=== PATIENT | male | born 1935 | race Caucasian/White ===

== ENCOUNTER 2016-08-17 11:26 | Inpatient (IN) | payer MEDICAID, MEDICARE ==
[~2016-08-17] VITALS: Ht 180.3 cm; Wt 78.5 kg
[~2016-08-17 11:26] MED LIST: ASPI-605 PO; CITA10TA9 PO; CLOP75TA2 PO; METO50TA3 PO; SILO8CAP PO; VALS40TA4 PO; ZOLP10TA6 PO
--- NOTE | 2016-08-17 11:32 | NUR ---
Sent by PMD for evaluation dt chest pain, 07/12, non radiaiting x 2 weeks. Pt is aao3, appears in no apparent distress, respiration even and unlaborted. Skin is warm to touch and non diaphoretic, patient is afebrile; vss. connected pt to tele monitor
[2016-08-17] MEDS ORDERED: ASPIRIN 81 MG TAB.CHEW ONE (11:50)
[2016-08-17] MEDS ORDERED: NITROGLYCERIN PACKET 1 GM PACKET ONE (11:51)
[2016-08-17 11:55] LABS: BASOPHILS # (AUTO) 0.2 /CMM (0.0-0.2); BASOPHILS % (AUTO) 2.2 % (0.0-2.0); EOSINOPHILS # (AUTO) 0.3 /CMM (0.0-0.7); EOSINOPHILS % (AUTO) 3.7 % (0.0-6.0); HEMATOCRIT 41 % (39-51); HEMOGLOBIN 13.3 g/dL (13.5-17.5); MEAN CORPUSCULAR HEMOGLOBIN 29 PG (26.0-33.0); MEAN CORPUSCULAR HGB CONC 33 g/dl (31.0-36.0); MEAN CORPUSCULAR VOLUME 88 fL (80-96); MONOCYTES # (AUTO) 0.4 /CMM (0.1-1.30); MONOCYTES % (AUTO) 5.1 % (2.0-12.0); NEUTROPHILS # (AUTO) 5.4 /CMM (1.8-8.9); PLATELET COUNT (AUTO) 287 /CMM (150-450); RED BLOOD CELL COUNT(AUTO) 4.64 MIL/uL (4.5-6.0); WHITE BLOOD COUNT (AUTO) 7.3 K/uL (4.3-11.0)
[2016-08-17] MEDS ORDERED: NITROGLYCERIN PACKET 1 GM PACKET TD ONE (12:00)
[2016-08-17] MEDS ORDERED: ASPIRIN 325 MG TABLET PO ONE (12:00)
--- NOTE | 2016-08-17 12:00 | NUR ---
XRAY TCH AT [facility]
[2016-08-17] MEDS ORDERED: HYDR-3326 PO (12:04)
[2016-08-17 12:06] LABS: CALCIUM, SERUM 8.8 mg/dL (8.5-10.1); CARBON DIOXIDE 30 mmol/L (21-32); CHLORIDE 105 mmol/L (98-107); CREATININE 0.9 mg/dL (0.6-1.3); GLUCOSE 106 mg/dL (74-106); POTASSIUM 4.9 mmol/L (3.5-5.1); SODIUM SERUM 139 mmol/L (136-145); UREA NITROGEN, BLOOD 22 mg/dL (7-18)
[2016-08-17 12:09] LABS: INR 0.94 (0.87-1.13); PROTHROMBIN TIME 9.8 SECS (9.5-12.7)
[2016-08-17 12:13] LABS: TROPONIN I < 0.017 ng/mL (0.00-0.056)
[2016-08-17 12:18] LABS: B-TYPE NATRIURETIC PEPTIDE 1941 PG/ML (0-125)
--- NOTE | 2016-08-17 12:42 | NUR ---
Patient is resting comfortably in bed.
--- NOTE | 2016-08-17 13:06 | NUR ---
PAGED DR BA HOME DELIVERY DRIVER FOR DR GOMEZ
--- NOTE | 2016-08-17 13:31 | NUR ---
REPAGED DR BA
--- NOTE | 2016-08-17 13:52 | NUR ---
PATIENT TRANSPORTED TOO 3W. VSS
[2016-08-17 14:30] VITALS: BP 133/65
[2016-08-17 16:00] VITALS: BP 142/66
[2016-08-17] MEDS ORDERED: ONDANSETRON 4 MG TAB.RAPDIS PO PRN (16:00)
[2016-08-17] MEDS ORDERED: RANEXA 500 MG PO SCH (17:00)
[2016-08-17] MEDS ORDERED: ZOLPIDEM TARTRATE 10 MG TABLET PO PRN (19:00)
[2016-08-17] MEDS ORDERED: HYDROCODONE/APAP 5/325MG 1 EACH TABLET PO PRN (19:00)
[2016-08-17 20:00] VITALS: BP 154/67
--- NOTE | 2016-08-17 20:00 | NUR ---
RECEIVED PATIENT IN BED, ALERT AND ORIENTED X3, CALM, NO SOB, ON 2LPM VIA NC PRN, COMPLAINING OF BACK PAIN OF 7/10, WILL GIVE PAIN MEDICATION, ALSO COMPLAINING OF BURNING SENSATION TO THE CHEST, PATIENT HAS DX OF ACS, ON TELE WITH READING OF SR WITH FIRST AV BLOCK AND BORDERLINE BBB. COLOSTOMY BAG TO LEFT LOWER QUADRANT IS DRAINING OF SOLID STOOL. KEPT SAFE AND COMFORTABLE, CALL LIGHT WITHIN REACH. Addendum: 08/17/16 at 2241 by AN KENNEDY RN CORRECTION: COLOSTOMY ON RIGHT LOWER QUADRANT
--- NOTE | 2016-08-17 20:23 | NUR ---
NEW ORDER OF MAALOX 30 ML PRN FOR DYSPEPSIA, ORDER NOTED AND CARRIED OUT.
[2016-08-17] MEDS ORDERED: MAG HYDROX/AL HYDROX/SIMETH 30 ML UDC PO PRN (20:30)
[2016-08-17] MEDS: ENOXAPARIN SODIUM 80 MG/0.8 ML DISP.SYRIN SQ SCH (20:58)
--- NOTE | 2016-08-17 21:38 | NUR ---
VTE RECALCULATED, ON ADMISSION VTE IS 0, WITH RECALCULATION IT IS NOW VTE 3
[2016-08-18] VITALS: BP 139/73
--- NOTE | 2016-08-18 00:21 | NUR ---
COMPLAINING OF NAUSEA WITHOUT EMESIS, WITH HEADACHE, GIVEN ZOFRAN AND NORCO
[2016-08-18] MEDS ORDERED: LORAZEPAM INJ 2 MG/ML VIAL ONE (01:06)
[2016-08-18] MEDS ORDERED: ACETAMINOPHEN 325 MG TABLET ONE (01:07)
[2016-08-18] MEDS: LORAZEPAM INJ 2 MG/ML VIAL IV PRN ×2 (01:13→16:35)
[2016-08-18] MEDS: ACETAMINOPHEN 325 MG TABLET PO PRN (01:13)
--- NOTE | 2016-08-18 02:03 | NUR ---
PATIENT RESTLESS, UNABLE TO SLEEP, AMBIEN INEFFECTIVE, PER PATIENT " I DON'T FEEL GOOD, I FEEL WIRED, I JUST WANT TO RELAX." BP WNL, TELEMONITORING SAYS SR WITH OCCASIONAL BBB. NOTIFIED DR. CEBALLOS, BOTTOM SANDER FOR DR. BA, NEW ORDER OF ATIVAN 2MG IVP AND TYLENOL, ORDERS NOTED AND CARRIED OUT.
--- NOTE | 2016-08-18 04:00 | NUR ---
PATIENT RESTING COMFORTABLY, NO SOB, RESPIRATION EVEN AND UNLABORED. WILL CONTINUE TO MONITOR.
--- NOTE | 2016-08-18 04:22 | NUR ---
COLOSTOMY IS ON LEFT LOWER QUADRANT
[2016-08-18 06:30] VITALS: BP 108/65
--- NOTE | 2016-08-18 06:43 | NUR ---
PATIENT RESTING COMFORTABLY, NO DISTRESS, NO SOB, RESPIRATION EVEN AND UNLABORED. GIVEN ATIVAN 2 MG FOR RESTLESSNESS, EFFECTIVE, SLEPT FOR 5.5 HOURS. COLOSTOMY WITH FORMED, SOFT STOOL. PATIENT ABLE TO CHANGE OWN COLOSTOMY. NEEDS ATTENDED, CALL LIGHT WITHIN REACH
[2016-08-18 07:26] LABS: BASOPHILS % (AUTO) 0.5 % (0.0-2.0); EOSINOPHILS # (AUTO) 0.2 /CMM (0.0-0.7); EOSINOPHILS % (AUTO) 3.1 % (0.0-6.0); HEMATOCRIT 38 % (39-51); HEMOGLOBIN 12.7 g/dL (13.5-17.5); LYMPHOCYTES # (AUTO) 1.3 /CMM (0.8-4.8); LYMPHOCYTES % (AUTO) 20.7 % (20.0-44.0); MEAN CORPUSCULAR HEMOGLOBIN 30 PG (26.0-33.0); MEAN CORPUSCULAR HGB CONC 33 g/dl (31.0-36.0); MEAN CORPUSCULAR VOLUME 89 fL (80-96); MONOCYTES # (AUTO) 0.5 /CMM (0.1-1.30); MONOCYTES % (AUTO) 7.9 % (2.0-12.0); NEUTROPHILS # (AUTO) 4.3 /CMM (1.8-8.9); NEUTROPHILS % (AUTO) 67.8 % (43.0-81.0); PLATELET COUNT (AUTO) 245 /CMM (150-450); RDW COEFFICIENT OF VARIATION 13.5 (11.5-15.0); RED BLOOD CELL COUNT(AUTO) 4.26 MIL/uL (4.5-6.0); WHITE BLOOD COUNT (AUTO) 6.4 K/uL (4.3-11.0)
[2016-08-18 07:50] LABS: ALANINE AMINOTRANSFERASE 16 U/L (12-78); ALKALINE PHOSPHATASE 96 U/L (46-116); ASPARTATE AMINOTRANSFERASE 18 U/L (15-37); BILIRUBIN,DIRECT 0.1 mg/dL (0.0-0.2); BILIRUBIN,TOTAL 0.7 mg/dL (0.2-1.0); CALCIUM, SERUM 8.6 mg/dL (8.5-10.1); CARBON DIOXIDE 29 mmol/L (21-32); CHLORIDE 107 mmol/L (98-107); CREATININE 0.9 mg/dL (0.6-1.3); GLUCOSE 109 mg/dL (74-106); POTASSIUM 4.7 mmol/L (3.5-5.1); SODIUM SERUM 142 mmol/L (136-145); TOTAL PROTEIN, SERUM 6.3 g/dL (6.4-8.2); UREA NITROGEN, BLOOD 22 mg/dL (7-18)
[2016-08-18 08:00] VITALS: BP_SYST 108; BP_SYST 195; BP_DIAS 115; BP_DIAS 65
--- NOTE | 2016-08-18 08:00 | NUR ---
tele center director lead teacher: initial assessment received pt in bed awake, a/ox4. pt c/o chest discomfort, but tolerable. dr. ahumada here to see pt. tele sr with 1st degree av block with bbb. instructed to call for assistance. will continue to monitor.
[2016-08-18 08:06] LABS: CHOLESTEROL 231 mg/dL (<200); HDL CHOLESTEROL 39 mg/dL (40-60); LDL 155 mg/dL (0-99); TRIGLYCERIDES 156 mg/dL (30-150)
--- NOTE | 2016-08-18 08:30 | NUR ---
TELE PATIENT RELATIONS LIAISON: CARDIO CONSULT SEEN AND EXAMINED BY DR. PAK WITH ORDER FOR STRESS TEST TODAY, PT HASN'T EATEN HIS BREAKFAST YET AND KEPT PT NPO FOR NOW. TRAY SAVED. PT VERBALIZED UNDERSTANDING. CONSENT SIGNED BY PT AND VERBALIZED UNDERSTANDING.
--- NOTE | 2016-08-18 09:23 | NUR ---
tele front office specialist: notes tele removed as ordered. pt remains npo. instructed to call for assistance. will monitor.
[2016-08-18] MEDS ORDERED: REGADENOSON 0.4 MG/5 ML DISP.SYRIN IVP ONE (10:00)
[2016-08-18] MEDS: ENOXAPARIN SODIUM 80 MG/0.8 ML DISP.SYRIN SQ SCH ×2 (10:56→21:20)
--- NOTE | 2016-08-18 11:45 | NUR ---
m/s sales manager prearranged funerals: notes taken for stress test via w/c at this time.
--- NOTE | 2016-08-18 13:00 | NUR ---
m/s wind turbine mechanical engineer: notes back from stress test and lunch served. instructed to call for assistance. will continue to monitor.
[2016-08-18] MEDS: CITALOPRAM HYDROBROMIDE 10 MG TABLET PO SCH (13:10)
[2016-08-18] MEDS: CLOPIDOGREL BISULFATE 75 MG TABLET PO SCH (13:10)
[2016-08-18] MEDS: VALSARTAN 40 MG TABLET PO SCH (13:10)
[2016-08-18] MEDS: ASPIRIN EC 81 MG TABLET.DR PO SCH (13:10)
[2016-08-18] MEDS: METOPROLOL TARTRATE 50 MG TABLET PO SCH ×2 (13:10→16:36)
--- NOTE | 2016-08-18 14:25 | NUR ---
m/s associate account manager: notes picked up by ashlie (nuclear [employer]) for phase 2 stress test.
[2016-08-18 16:00] VITALS: BP 143/70
--- NOTE | 2016-08-18 16:24 | NUR ---
m/s auto electrical technician: notes pt is worried about his colostomy being obstructed and at times he does his own irrigation, but this time pt is requesting for fleets enema. dr. wood notified and made aware with order okay for fleet enema prn. order read back and carried out and acknowledged.
[2016-08-18] MEDS ORDERED: NA PHOS,M-B/NA PHOS,DI-BA 1 EA ENEMA RC PRN (16:30)
--- NOTE | 2016-08-18 18:00 | NUR ---
m/s brush and broom clipper: notes in bed awake with no appetite at this time. needs attended. no apparent distress noted. instructed to call for assistance. will continue to monitor.
--- NOTE | 2016-08-18 19:00 | NUR ---
MS RN INITIAL NOTE PT RECEIVED IN BED, A/O X 3, NO S/S OF RESPIRATORY DISTRESS OR SOB. SAFE ENVIRONMENT PROVIDED FREE OF CLUTTERS. IV SITE INTACT WITH NO S/S OF INFILTRATION NOTED.BED IN LOCKED, LOW POSITION. CALL LIGHT WITHIN EASY REACH. WILL CONTINUE TO MONITOR.
[2016-08-18 20:00] VITALS: BP 120/68
--- NOTE | 2016-08-18 22:02 | NUR ---
PLAN OF CARE WAS GIVEN TO GIOVANNI MARCUM OF POC PATIENT IN STABLE CONDITION
--- NOTE | 2016-08-18 22:05 | NUR ---
MS/RN NOTES RECEIVED PT. LYING DOWN IN BED. AWAKE, ALERT AND ORIENTED X3. BREATHING EVEN AND UNLABORED ON ROOM AIR. NO SOB OR RESPIRATORY DISTRESS NOTED AT THIS TIME. NO COMPLAINTS OF CHEST PAIN NOTED AT THIS TIME. PT. WITH RIGHT FOREARM 20 GAUGE IV SALINE LOCK PRESENT, PATENT AND INTACT. BED IN LOWEST POSITION, CALL LIGHT WITHIN REACH, WILL CONTINUE TO MONITOR.
--- NOTE | 2016-08-18 22:40 | NUR ---
MS/RN NOTES PT. DEMANDING TO HAVE CALLED AND X-RAY TAKEN OF HIS ABDOMEN. PT. STATES HE HAS PAIN IN HIS ABDOMEN AND HE THINKS THERE IS AN OBSTRUCTION THAT WILL NEED A NG-TUBE. UPON ASSESSMENT OF PT. HE HAS RECEIVED AN ENEMA A FEW HOURS AGO. SINCE THE ENEMA PT. HAS HAD ONE LARGE BM AND IS PASSING GAS. PT. ABDOMEN IS SOFT AND NON-TENDER TO PALPATION. PT. HAS NO COMPLAINTS OF NAUSEA AND DENIES WANTING PAIN MEDICATION AT THIS TIME. CALLED ON-CALL SERVICE TO NOTIFY MD OF PT. REQUESTS/CONCERNS. POACHER OPERATOR HAS BEEN PAGED. AWAITING FOR TO CALL BACK. WILL CONTINUE TO MONITOR.
--- NOTE | 2016-08-18 23:36 | NUR ---
MS/RN NOTES SPOKE WITH DR. GOMEZ AND INFORMED HIM PT. DEMANDING XRAY OF HIS ABDOMEN BE DONE BECAUSE HE BELIEVES HE HAS AN OBSTRUCTION. PT. HAS RECEIVED ENEMA EARLIER TODAY AND HAS HAD A LARGE BM FOLLOWING THE ENEMA AND IS PASSING GAS. PT. HAS NO COMPLAINTS OF NAUSEA AND DENIES PAIN MEDICATION AT THIS TIME. PT. ABDOMEN SOFT AND NON-TENDER TO PALPATION. PER NEW ORDERS: STAT KUB. WILL CARRY OUT ORDER. WILL CONTINUE TO MONITOR.
--- NOTE | 2016-08-19 00:03 | NUR ---
MS/RN NOTES PT. NOTIFIED THAT DR. GOMEZ CALLED BACK AND ORDERED STAT XRAY KUB. PT. STATES "I DON'T WANT THE XRAY ANYMORE. IM FEELING A LOT BETTER. I DON'T THINK I HAVE AN OBSTRUCTION. I WON'T HAVE IT DONE. I WANT TO GET SOME SLEEP". PT. REFUSING STAT KUB. WILL CONTINUE TO MONITOR. Addendum: 08/19/16 at 0007 by GIOVANNI WILSON RN RADIOLOGY CALLED AND NOTIFIED THAT PT. IS REFUSING XRAY.
[2016-08-19] MEDS: LORAZEPAM INJ 2 MG/ML VIAL IV PRN (00:13)
--- NOTE | 2016-08-19 06:55 | NUR ---
MS/RN NOTES PT. LYING IN BED RESTING. BREATHING EVEN AND UNLABORED ON ROOM AIR. NO SOB OR RESPIRATORY DISTRESS NOTED AT THIS TIME. NO COMPLAINTS OF CHEST PAIN NOTED AT THIS TIME. PT. WITH RIGHT FOREARM 20 GAUGE IV SALINE LOCK PRESENT, PATENT AND INTACT. ALL PT. NEEDS MET. BED IN LOWEST POSITION, CALL LIGHT WITHIN REACH, WILL ENDORSE TO DAYSHIFT NURSE FOR CONTINUITY OF CARE.
--- NOTE | 2016-08-19 07:15 | NUR ---
ms rn initial notes Received patient in bed, asleep, head of bed elevated, no SOB or distress noted. on room air and tolerated well. LLQ colostomy bag in placed. IV intact and patent. Alert and oriented x 4, verbally responsive and able to make needs known. Kept patient clean and comfortable in bed, call light with in patient reach, will continue to monitor accordingly.
[2016-08-19 08:00] VITALS: BP 122/60
[2016-08-19] MEDS: CLOPIDOGREL BISULFATE 75 MG TABLET PO SCH (08:43)
[2016-08-19] MEDS: METOPROLOL TARTRATE 50 MG TABLET PO SCH (08:44)
[2016-08-19] MEDS: CITALOPRAM HYDROBROMIDE 10 MG TABLET PO SCH (08:44)
[2016-08-19] MEDS: ASPIRIN EC 81 MG TABLET.DR PO SCH (08:44)
[2016-08-19 08:45] VITALS: BP 122/60
[2016-08-19] MEDS: VALSARTAN 40 MG TABLET PO SCH (08:45)
[2016-08-19] MEDS: ENOXAPARIN SODIUM 80 MG/0.8 ML DISP.SYRIN SQ SCH (08:46)
[2016-08-19] MEDS: ACETAMINOPHEN 325 MG TABLET PO PRN (11:40)
--- NOTE | 2016-08-19 13:54 | NUR ---
MS ELECTRICAL FITTER NOTES discharge instructions given to patient and able to understand instructions. Signed discharge paper and belonging list. Alert and Oriented x 3, verbally responsive and able to make needs known. Skin assessment done patient skin is intact. Flu and pneumonia vaccine not given due to patient refused pneumonia vaccine and flu vaccine is out of season. No complaint of pain or discomfort at this time, nor chest pain. Vital signs checked and recorded. MD and charge nurse aware. Patient left the hospital in stable condition via ambulatory accompanied by JOURNALISM PROFESSOR assigned to the patient.
== END 2016-08-19 13:57 | disposition home or self-care (01) | DRG 198 ==
LOC: ER 11:27 → TELE 13:23 → MED 08-18 09:31
PROVIDERS: ADMIT Internal Medicine; ATTEND Internal Medicine Nephrology
DX: I25.10 Atherosclerotic heart disease of native coronary artery without angina pectoris (principal); I10 Essential (primary) hypertension; Z85.048 Personal history of other malignant neoplasm of rectum, rectosigmoid junction, and anus; Z92.3 Personal history of irradiation; Z87.891 Personal history of nicotine dependence; Z93.3 Colostomy status; Z95.5 Presence of coronary angioplasty implant and graft; E78.00 Pure hypercholesterolemia, unspecified; Z85.038 Personal history of other malignant neoplasm of large intestine
CPT/HCPCS: 36415; 71010-TC; 80048-TC; 80053-TC; 80061-TC; 80076-TC; 83880; 84484-TC; 85025-TC; 85730-TC; 87081-TC; 93307-TC; A4606; A9502; J1650; J2060; J2785; Q0162; Z7610

== ENCOUNTER 2016-09-15 22:12 | Emergency (ER) | payer MEDICARE, MEDICAID ==
[~2016-09-15] VITALS: Ht 180.3 cm; Wt 74.8 kg
[~2016-09-15 22:12] MED LIST changes: +HYDR-3326 PO; -SILO8CAP PO
--- NOTE | 2016-09-15 22:30 | NUR ---
to bed 1 ambulatory c/o not feelign well x8 hrs. pt unable to describe how he feel. pt denies pain at this time, no acute distress ntoed. pt report that he had a stent placement done by dr. zhang on 09/11. place pt on cardiac monitoring, continuous pox.pending er md barksdale.
[2016-09-15 23:11] LABS: BASOPHILS % (AUTO) 0.8 % (0.0-2.0); EOSINOPHILS # (AUTO) 0.2 /CMM (0.0-0.7); EOSINOPHILS % (AUTO) 3.1 % (0.0-6.0); HEMATOCRIT 37 % (39-51); HEMOGLOBIN 12.3 g/dL (13.5-17.5); LYMPHOCYTES # (AUTO) 1.4 /CMM (0.8-4.8); LYMPHOCYTES % (AUTO) 23.5 % (20.0-44.0); MEAN CORPUSCULAR HEMOGLOBIN 30 PG (26.0-33.0); MEAN CORPUSCULAR HGB CONC 33 g/dl (31.0-36.0); MEAN CORPUSCULAR VOLUME 90 fL (80-96); MONOCYTES # (AUTO) 0.5 /CMM (0.1-1.30); MONOCYTES % (AUTO) 7.7 % (2.0-12.0); NEUTROPHILS # (AUTO) 3.9 /CMM (1.8-8.9); NEUTROPHILS % (AUTO) 64.9 % (43.0-81.0); PLATELET COUNT (AUTO) 250 /CMM (150-450); RDW COEFFICIENT OF VARIATION 14.6 (11.5-15.0); RED BLOOD CELL COUNT(AUTO) 4.15 MIL/uL (4.5-6.0)
[2016-09-15] MEDS ORDERED: ONDANSETRON HCL/PF 4 MG/2 ML VIAL ONE (23:12)
[2016-09-15 23:21] LABS: CARBON DIOXIDE 26 mmol/L (21-32); CHLORIDE 104 mmol/L (98-107); GLUCOSE 107 mg/dL (74-106); POTASSIUM 4.2 mmol/L (3.5-5.1); SODIUM SERUM 141 mmol/L (136-145); UREA NITROGEN, BLOOD 16 mg/dL (7-18)
[2016-09-15] MEDS: ONDANSETRON HCL/PF 4 MG/2 ML VIAL IVP ONE (23:22)
[2016-09-15 23:26] LABS: INR 0.92 (0.87-1.13); PROTHROMBIN TIME 9.8 SECS (9.5-12.7)
[2016-09-15 23:30] LABS: TROPONIN I 0.081 ng/mL (0.00-0.056)
[2016-09-15 23:36] LABS: CALCIUM, SERUM 8.4 mg/dL (8.5-10.1)
[2016-09-16] MEDS ORDERED: ACETAMINOPHEN 325 MG TABLET ONE (00:04)
--- NOTE | 2016-09-16 00:12 | NUR ---
Patient discharged to home in stable condition. Written and verbal after care instructions given. Patient verbalizes understanding of instruction. IV removed. Catheter intact and site benign. Pressure and 4x4 applied to site. No bleeding noted. ambulatory with a steady gait noted. pt aaox4 no acute distress noted, resp even and unlabored. pt son at bedside to take pt home. pt remains pain free at this time.
[2016-09-16 00:17] VITALS: BP 128/63
[2016-09-16] MEDS ORDERED: ACETAMINOPHEN 325 MG TABLET PO ONE (00:30)
== END 2016-09-16 00:18 | disposition home or self-care (01) ==
LOC: ER 22:15
DX: R11.0 Nausea (principal); I10 Essential (primary) hypertension; E78.00 Pure hypercholesterolemia, unspecified; R79.1 Abnormal coagulation profile; Z79.82 Long term (current) use of aspirin; Z85.048 Personal history of other malignant neoplasm of rectum, rectosigmoid junction, and anus; Z95.1 Presence of aortocoronary bypass graft; Z95.5 Presence of coronary angioplasty implant and graft; Z88.5 Allergy status to narcotic agent; Z93.3 Colostomy status
CPT/HCPCS: 36415; 71010; 80048; 84484; 85025; 85730; 93005; 96374; 99285; A4606; J2405; Z7610

== ENCOUNTER 2017-08-04 06:45 | Inpatient (IN) | payer MEDICAID, MEDICARE ==
[~2017-08-04] VITALS: Ht 180.3 cm; Wt 79.4 kg
[~2017-08-04 06:45] MED LIST changes: +CLOP75TA15 PO; -CLOP75TA2 PO; -HYDR-3326 PO; +HYDR-3974 PO; +METO50TA16 PO; -METO50TA3 PO
--- NOTE | 2017-08-04 07:03 | NUR ---
PT AMBULATORY TO ER BED 12. BIBSELF C/O ABD PAIN X 4AM. +N -V/D. HX BOWEL OBSTRUCTION / COLOSTOMY. PT PLACED IN GOWN AND ON TOP FRAME FITTER. VSS/RESP EVEN UNLABORED/NAD NOTED/SKIN WARM AND DRY/DENIES N-V-D/AFEBRILE/AOX4. AWAITING MD CLEARY.
--- NOTE | 2017-08-04 07:07 | NUR ---
URINE COLLECTED. SENT TO LAB
[2017-08-04 07:50] LABS: APPEARANCE,URINE CLEAR (CLEAR); BILIRUBIN,URINE NEGATIVE (NEGATIVE); BLOOD, URINE NEGATIVE Ery/uL (NEGATIVE); COLOR,URINE YELLOW (YELLOW); KETONES,URINE NEGATIVE (NEGATIVE); LEUKOCYTE ESTERASE ,URINE NEGATIVE (NEGATIVE); NITRITE, URINE NEGATIVE (NEGATIVE); PROTEIN,URINE NEGATIVE (NEGATIVE); UGLUCOSE NEGATIVE (NEGATIVE); UROBILINOGEN,URINE 0.2 EU/dL (0.2)
[2017-08-04 07:54] LABS: BASOPHILS % (AUTO) 0.5 % (0.0-2.0); EOSINOPHILS % (AUTO) 2.4 % (0.0-6.0); HEMATOCRIT 35 % (39-51); HEMOGLOBIN 11.7 g/dL (13.5-17.5); LYMPHOCYTES # (AUTO) 0.9 /CMM (0.8-4.8); LYMPHOCYTES % (AUTO) 11.6 % (20.0-44.0); MEAN CORPUSCULAR HGB CONC 34 g/dl (31.0-36.0); MEAN CORPUSCULAR VOLUME 91 fL (80-96); MONOCYTES # (AUTO) 0.3 /CMM (0.1-1.30); MONOCYTES % (AUTO) 3.5 % (2.0-12.0); NEUTROPHILS # (AUTO) 6.2 /CMM (1.8-8.9); PLATELET COUNT (AUTO) 248 /CMM (150-450); RDW COEFFICIENT OF VARIATION 14.3 (11.5-15.0); WHITE BLOOD COUNT (AUTO) 7.5 K/uL (4.3-11.0)
[2017-08-04 08:12] LABS: ALANINE AMINOTRANSFERASE 13 U/L (12-78); ALBUMIN 3.1 g/dL (3.4-5.0); ALKALINE PHOSPHATASE 70 U/L (46-116); ASPARTATE AMINOTRANSFERASE 13 U/L (15-37); BILIRUBIN,DIRECT 0.1 mg/dL (0.0-0.2); BILIRUBIN,TOTAL 0.4 mg/dL (0.2-1.0); CALCIUM, SERUM 8.9 mg/dL (8.5-10.1); CARBON DIOXIDE 26 mmol/L (21-32); CHLORIDE 105 mmol/L (98-107); GLUCOSE 107 mg/dL (74-106); LIPASE 133 U/L (73-393); POTASSIUM 4.5 mmol/L (3.5-5.1); SODIUM SERUM 141 mmol/L (136-145); TOTAL PROTEIN, SERUM 6.5 g/dL (6.4-8.2); UREA NITROGEN, BLOOD 23 mg/dL (7-18)
[2017-08-04] MEDS ORDERED: IV NS 0.9% 500 ML BAG IV ONE (09:00)
[2017-08-04] MEDS ORDERED: HYDROMORPHONE INJ 2 MG/ML DISP.SYRIN IV ONE (09:00)
[2017-08-04] MEDS ORDERED: ONDANSETRON HCL/PF 4 MG/2 ML VIAL IVP ONE (09:00)
[2017-08-04] MEDS ORDERED: ONDANSETRON HCL/PF 4 MG/2 ML VIAL ONE (09:05)
[2017-08-04] MEDS ORDERED: HYDROMORPHONE INJ 0.5 MG/0.5 ML SYRINGE ONE (09:06)
[2017-08-04] MEDS ORDERED: ALBU8.5H8 IH (09:36)
[2017-08-04] MEDS ORDERED: FURO-144 PO (09:36)
[2017-08-04] MEDS ORDERED: SACC250C PO (09:36)
[2017-08-04] MEDS ORDERED: ONDA4TAB5 PO (09:36)
[2017-08-04] MEDS ORDERED: RANO10003 PO (09:36)
--- NOTE | 2017-08-04 10:54 | NUR ---
PATIENT TRANSPORTED TO MS. S
--- NOTE | 2017-08-04 10:55 | NUR ---
PATIENT ARRIVED TO UNIT FROM ER. PATIENT AOX4. NONLABORED BREATHING NOTED ON ROOM AIR. DENYING CHEST PAIN AND DENYING SYNCOPE. IV ON RIGHT AC PATENT AND INTACT GAUGE 20. PATIENT AMBULATORY,STEADY. DENYING PRESENCE OF WOUNDS AND SKIN ABNORMALITIES, REFUSING FULL SKIN ASSESSMENT. BENEFITS AND RISKS EXPLAINED TO PATIENT. BED IN LOWEST LOCKED POSITION. CALL LIGHT WITHIN REACH. CURRENTLY NPO, AWAITING SURGICAL CONSULTATION
[2017-08-04 10:56] VITALS: BP 126/59
[2017-08-04] MEDS ORDERED: ONDANSETRON HCL/PF 4 MG/2 ML VIAL IV PRN (12:30)
[2017-08-04] MEDS: IV 1/2NS 1000 ML 1,000 ML IV PRN (13:19)
[2017-08-04] MEDS: PANTOPRAZOLE 40 MG VIAL IV SCH (13:23)
--- NOTE | 2017-08-04 15:02 | NUR ---
PER MARCELO STONE 5 MG PRN HS
[2017-08-04 16:00] VITALS: BP 127/69
[2017-08-04] MEDS: METOPROLOL TARTRATE 50 MG TABLET PO SCH (16:00)
--- NOTE | 2017-08-04 16:38 | NUR ---
PER DR HALL, SOFT DIET. VERBAL READBACK
--- NOTE | 2017-08-04 16:38 | NUR ---
PER DR RAFAEL MCCONNELL, SOFT DIET
[2017-08-04] MEDS: ACETAMINOPHEN 650 MG/20.3 ML UDC NG PRN ×2 (17:13→23:00)
--- NOTE | 2017-08-04 17:46 | NUR ---
PATIENT STATES THAT GENERALIZED MILD PAIN HAS DECREASED AFTER THE ADMINISTRATION OF TYLENOL PRN
--- NOTE | 2017-08-04 19:15 | NUR ---
RN INITIAL NOTES: RECEIVED REPORT FROM MOJGAN MARCUM, PT AMBULATING AROUND THE HALLWAY, A/O X4, ON RA RESPIRATION EVEN AND UNLABORED. DENIES ANY DISCOMFORT AT THIS TIME. SEEN BY DR HALL AND DISCUSSED REGARDING PLAN OF CARE AND NO SURGICAL INTERVENTION AT THIS TIME, DUE TO HISTORY OF MULTIPLE STENTS PLACEMENT. IV ACCESS ON RIGHT AC PATENT AND FLUSHING WELL, ON HL. PT REFUSED SCD, EDUCATION PROVIDED TO THE PT. DISCUSSED PLAN OF CARE TO THE PT. SAFETY PRECAUTIONS FOR FALL INITIATED DENNISE LIGHT IN REACH, WILL CONTINUE MONITORING PT.
--- NOTE | 2017-08-04 19:23 | NUR ---
RN CLOSING NOTES PATIENT RESTING IN BED. NONLABORED BREATHING NOTED ON ROOM AIR. DENYING CHEST PAIN AND DENYING SYNCOPE. IV ON RIGHT AC PATENT AND INTACT GAUGE 20, PATIENT REQUESTING TO BE DISCONNECTED FROM CURRENT ORDERED IV FLUIDS, DANE RN NOTIFIED . PATIENT REFUSING DINNER, TOLERATING FLUIDS AND JUICE WELL BED IN LOWEST LOCKED POSITION. CALL LIGHT WITHIN REACH. ENDORSED TO NEXT NURSE REFUSING DVT PUMPS, BENEFITS AND RISKS EXPLAINED
[2017-08-04] MEDS ORDERED: ALBUTEROL FS 2.5 MG/0.5 ML VIAL.NEB NEB PRN (19:30)
[2017-08-04 20:00] VITALS: BP 109/54
--- NOTE | 2017-08-04 20:00 | NUR ---
RN NOTES: PT REQUESTED TO GET SUPPLIES SO HE CAN CHANGE HIS COLOSTOMY BAG, AND ALSO ASKED FOR RAZOR AND SHAVING CREAM, NO MIRROR IN THE BATHROOM, SO WE PROVIDED EXTRA TABLE WITH MIRROR, AND DISINFECT IT AFTER USING.
--- NOTE | 2017-08-04 20:30 | NUR ---
RN NOTES: PT TOLD RN THAT HE WAS NOT HAPPY ABOUT TODAY. I ASKED PT TO PLEASE ELABORATE FURTHER WHAT WAS HE MEANT BY THAT. HE NARRATED THAT HE WAS IN THE OTHER ROOM, IN ROOM 207-2 AND HE HAS A ROOM MATE WHERE FAMILY/FRIENDS VISITED FOR 4HRS. PT STATED "THEY DIDNT EVEN GIVE ME ANY COURTESY. SOME OF THEM TALKING IN SERBIAN, SOME ARE USING DIFFERENT LANGUAGE THAT I DON'T UNDERSTAND. PT IS NOW MOVED TO ROOM 200-1, A SINGLE ROOM. HE ALSO COMPLAINED ABOUT NOT KNOWING WHY HE'S ABDOMEN KEPT HURTING DESPITE MD'S TELLING HIM THAT HE DOESNT NEED ANY SURGICAL INTERVENTION AT THIS TIME. HE STATED HE'S NOT HAPPY ABOUT IT. INFORMED PT THAT HE CAN TALKED TO HIS MD ABOUT HIS CONCERN. PT HAS COLOSTOMY ON LLQ, +STOOL, SOFT WITH SOME LIQUID. PT REFUSED JUICE, ONLY WANTS WATER. PT ALSO COMPLAINT ABOUT ER MD, THAT HE MENTIONED SOME MD NAMED "BETHANY" PT VERBALIZED IT WAS ER MD WHO SAW HIM IN ER, THAT CERTAIN MD STATED THE PT HIMSELF CAN GO HOME, BUT PT STATED HE REFUSED TO GO HOME BECAUSE HE STILL HAVING PAIN IN HIS ABDOMEN. HE'S ALSO CONFUSED TO WHY DR MICHELLE CEBALLOS WAS HOLDING OFF HIS LASIX, HE STATED HE'S BEEN ON LASIX FOR SO MANY YEARS. ABOVE ALL, HE STATED HE WILL TALK TO DR CEBALLOS ABOUT ALL HIS CONCERN.
--- NOTE | 2017-08-04 22:10 | NUR ---
RN NOTES: INFORMED PT TYLENOL WILL BE DUE AT 2313, IT IS Q6HRS PRN FOR MILD PAIN, PT STATED HE WILL JUST PASS ON IT, AND WOULD LIKE TO GET AMBIEN AT 0.
--- NOTE | 2017-08-04 22:15 | NUR ---
RN NOTES: CONNECTED PT BACK TO IVF 1/2 NS AT 75ML/HR
[2017-08-04] MEDS: ZOLPIDEM TARTRATE 5 MG TABLET PO PRN (22:26)
--- NOTE | 2017-08-04 22:29 | NUR ---
PRN AMBIEN: PT REQUESTED FOR SLEEPING PILL, PRN AMBIEN 5MG TAB ADMINISTERED AT THIS TIME.
--- NOTE | 2017-08-04 23:00 | NUR ---
prn tylenol: pt c/o abdominal discomfort 05/12 requesting for tylenol, prn tylenol 650mg liquid administered at this time.
--- NOTE | 2017-08-05 01:42 | NUR ---
RN NOTES: PT SLEEPING AT THIS TIME, APPEARS COMFORTABLE, NO SOB NOTED,
--- NOTE | 2017-08-05 02:30 | NUR ---
RN NOTES: PT NOTED TO BE SLEEPING, URINAL WITHIN REACH, RESPIRATION EVEN AND UNLABORED,
--- NOTE | 2017-08-05 04:00 | NUR ---
RN NOTES: PT SLEEPING, APPEARS COMFORTABLE, WILL CONTINUE MONITORING
--- NOTE | 2017-08-05 05:10 | NUR ---
RN NOTES: PT CALLED COMPLAINING THAT IT WAS TOO NOISY, DURING THIS TIME EVS HERE TO MEDICAL OFFICE TECHNOLOGY INSTRUCTOR TRASH, HOUSE KEEPING CAME TO FILL UP SUPPLIES OF LINEN, AND ANOTHER RN CAME TO ASK TO GET MEDICATION THEY RUN OUT OF STOCK UPSTAIRS IN THIRD FLOOR. PT ALSO COMPLAINING THAT IT WAS TOO COLD, TIRED TO INCREASE THE WARMER FROM THE NURSES STATION, PROVIDED WARM BLANKET TO THE PT, AND INFORMED PT ALSO THAT COOLING/WARMING SYSTEM IS CENTRALIZED UNLIKE THE ONE IN THE THIRD FLOOR, PT KEPT MENTIONING ABOUT 3WEST. CONTACTED ENGINEERING.
[2017-08-05] MEDS: IV 1/2NS 1000 ML 1,000 ML IV PRN (06:35)
--- NOTE | 2017-08-05 06:59 | NUR ---
RN CLOSING NOTES: PT AWAKE, REMAINS ON RA, STILL HAVE C/O ABDOMINAL DISCOMFORT. HE STATED HE WILL TALK TO DR MICHELLE CEBALLOS REGARDING THIS. PER SURGEON, NO SURGICAL INTERVENTION PER JESENIA JOSE. IV ACCESS REMAINS PATENT AND FLUSHING WELL, REQUESTED TO BE DISCONNECTED TO THE IVF HE WOULD LIKE TO TAKE A WALK IN THE HALLWAY. SAFETY PRECAUTIONS FOR FALL INITIATED, CALL LIGHT IN REACH, WILL ENDORSE TO DAY RN FOR KATIA.
[2017-08-05 07:08] LABS: BASOPHILS % (AUTO) 0.4 % (0.0-2.0); HEMATOCRIT 34 % (39-51); HEMOGLOBIN 11.4 g/dL (13.5-17.5); LYMPHOCYTES % (AUTO) 19.8 % (20.0-44.0); MEAN CORPUSCULAR HGB CONC 34 g/dl (31.0-36.0); MEAN CORPUSCULAR VOLUME 91 fL (80-96); MONOCYTES # (AUTO) 0.3 /CMM (0.1-1.30); MONOCYTES % (AUTO) 5.5 % (2.0-12.0); NEUTROPHILS # (AUTO) 3.5 /CMM (1.8-8.9); NEUTROPHILS % (AUTO) 69.3 % (43.0-81.0); PLATELET COUNT (AUTO) 227 /CMM (150-450); RDW COEFFICIENT OF VARIATION 13.8 (11.5-15.0); RED BLOOD CELL COUNT(AUTO) 3.71 MIL/uL (4.5-6.0)
--- NOTE | 2017-08-05 07:15 | NUR ---
RN OPEN NOTES RECEIVED BEDSIDE REPORT FROM NIGHT RN. PATIENT IS IN BED, AWAKE, ALERT AND ORIENTED TO NAME, PLACE AND TIME. NO SIGNS AND SYMPTOMS OF DISTRESS. PAIN 5/10, WILL ADMINISTER TYLENOL. BED IN LOW POSITION, LOCKED AND TWO SIDE RAILS ARE UP FOR SAFETY. CALL LIGHT WITHIN REACH FOR SAFETY. WILL CONTINUE TO MONITOR AND ASSESS PATIENT.
[2017-08-05 07:33] LABS: CALCIUM, SERUM 8.4 mg/dL (8.5-10.1); CARBON DIOXIDE 29 mmol/L (21-32); CHLORIDE 107 mmol/L (98-107); CREATININE 0.9 mg/dL (0.6-1.3); GLUCOSE 98 mg/dL (74-106); MAGNESIUM 1.9 mg/dL (1.8-2.4); PHOSPHORUS 3.5 mg/dL (2.5-4.9); POTASSIUM 4.5 mmol/L (3.5-5.1); SODIUM SERUM 141 mmol/L (136-145); UREA NITROGEN, BLOOD 16 mg/dL (7-18)
[2017-08-05] MEDS: ACETAMINOPHEN 650 MG/20.3 ML UDC NG PRN (07:47)
[2017-08-05 08:00] VITALS: BP 134/69
[2017-08-05] MEDS ORDERED: VALSARTAN 40 MG TABLET PO SCH (09:00)
[2017-08-05] MEDS: CITALOPRAM HYDROBROMIDE 10 MG TABLET PO SCH (09:28)
[2017-08-05] MEDS: CLOPIDOGREL BISULFATE 75 MG TABLET PO SCH (09:29)
[2017-08-05] MEDS: VALSARTAN 80 MG TABLET PO SCH (09:29)
[2017-08-05] MEDS: METOPROLOL TARTRATE 50 MG TABLET PO SCH ×2 (09:29→16:05)
[2017-08-05] MEDS ORDERED: RANEXA PO SCH (10:00)
[2017-08-05] MEDS: HOME MED - RANEXA 1000MG PO SCH ×2 (11:32→16:02)
[2017-08-05] MEDS: PANTOPRAZOLE 40 MG VIAL IV SCH (11:32)
[2017-08-05 16:00] VITALS: BP 148/70
[2017-08-05] MEDS: HYDROMORPHONE INJ 0.5 MG/0.5 ML SYRINGE IV PRN (16:03)
[2017-08-05] MEDS ORDERED: HOME MED - RANEXA 1000MG PO SCH (17:00)
--- NOTE | 2017-08-05 18:44 | NUR ---
RN CLOSING NOTES PATIENT IS IN BED, ALERT AND ORIENTED TO NAME, PLACE AND TIME. SATURATING 98% ON ON RA, NO SIGNS AND SYMPTOMS OF DISTRESS. DENIED PAIN. IV ACCESS R INTACT AND PATENT. SAFETY PRECAUTIONS FOR FALL INITIATED, BED IN LOW POSITION, LOCKED AND TWO SIDE RAILS ARE UP FOR SAFETY. CALL LIGHT IN REACH. ALL NURSING CARE PROVIDED. PATIENT KEPT CLEAN AND DRY. WILL ENDORSE TO NIGHT RN FOR KATIA.
--- NOTE | 2017-08-05 19:30 | NUR ---
RN INITIAL NOTES: RECEIVED REPORT FROM CHUY. PT STATED HE'S BEEN DOING WELL WITH DILAUDID FOR ABDOMINAL PAIN. INFORMED PT NEXT DILAUDID DUE WILL BE 2200. PT STATED HE DOESNT FEEL THE NEED TO GET IT AGAIN, HE STATED HE'S FEELING BETTER. AND HE WAS ABLE TO TOLERATE FOOD, AND HE'S HAPPY WITH THE FOOD THEY'RE SERVING FROM THE KITCHEN. PT WALKING IN THE HALLWAY. IV ACCESS PATENT AND FLUSHING WELL, ON HL. PT WILL HAVE EGD IN AM, WITH DR BRUMFIELD. PT CHANGED HIS COLOSTOMY BAG THIS AFTERNOON. SAFETY PRECAUTIONS FOR FALL INITIATED, CALL LIGHT IN REACH, WILL CONTINUE MONITORING PT
[2017-08-05 20:00] VITALS: BP_SYST 145; BP_SYST 148; BP_DIAS 70; BP_DIAS 71
--- NOTE | 2017-08-05 22:00 | NUR ---
RN NOTES: INFORMED PT THAT HE CAN GET DILAUDID IF HE'S PAIN IS NOT TOLERABLE, BUT PT STATED HE'S PAIN IS 3/10 AND DOESNT FEEL THE NEED TO GET THE DILAUDID AT THIS TIME. HE REQUESTED TO TAKE AMBIEN INSTEAD TO HELP HIM SLEEP. HE SAID AFTER HE RECEIVE AMBIEN HE WOULD LIKE TO HAVE THE DOOR CLOSE, SO HE CAN GET A GOOD NIGHT SLEEP. INFORMED PT THAT EVEN IF THE DOORS WERE CLOSE, WE STILL NEED TO DO OUR ROUNDS AND CHECK ON HIM, BUT NOT GOING TO BOTHER HIM IF HE;S ASLEEP.
[2017-08-05] MEDS: ZOLPIDEM TARTRATE 5 MG TABLET PO PRN (22:34)
--- NOTE | 2017-08-05 22:34 | NUR ---
prn ambien: pt requested for sleeping pill, prn ambien administered at this time
[2017-08-06] MEDS: IV 1/2NS 1000 ML 1,000 ML IV PRN (01:07)
[2017-08-06 06:37] LABS: INR 0.96 (0.87-1.13)
[2017-08-06 06:41] LABS: BASOPHILS % (AUTO) 0.4 % (0.0-2.0); EOSINOPHILS % (AUTO) 3.1 % (0.0-6.0); HEMATOCRIT 32 % (39-51); LYMPHOCYTES # (AUTO) 1.3 /CMM (0.8-4.8); LYMPHOCYTES % (AUTO) 22.8 % (20.0-44.0); MEAN CORPUSCULAR HGB CONC 34 g/dl (31.0-36.0); MEAN CORPUSCULAR VOLUME 91 fL (80-96); MONOCYTES # (AUTO) 0.4 /CMM (0.1-1.30); MONOCYTES % (AUTO) 6.9 % (2.0-12.0); NEUTROPHILS # (AUTO) 3.7 /CMM (1.8-8.9); NEUTROPHILS % (AUTO) 66.8 % (43.0-81.0); PLATELET COUNT (AUTO) 205 /CMM (150-450); RDW COEFFICIENT OF VARIATION 13.6 (11.5-15.0); RED BLOOD CELL COUNT(AUTO) 3.53 MIL/uL (4.5-6.0); WHITE BLOOD COUNT (AUTO) 5.5 K/uL (4.3-11.0)
[2017-08-06 06:59] LABS: CALCIUM, SERUM 8.3 mg/dL (8.5-10.1); CARBON DIOXIDE 27 mmol/L (21-32); CHLORIDE 106 mmol/L (98-107); GLUCOSE 101 mg/dL (74-106); POTASSIUM 4.2 mmol/L (3.5-5.1); SODIUM SERUM 141 mmol/L (136-145); UREA NITROGEN, BLOOD 18 mg/dL (7-18)
--- NOTE | 2017-08-06 07:12 | NUR ---
RN CLOSING NOTES: PT AWAKE, REMAINS ON RA, REMAINS ON NPO FOR EGD AT 1030AM, CONSENT SECURED, CHECKLIST COMPLETED.IV ACCESS REMAINS PATENT AND FLUSHING WELL, REQUESTED TO BE DISCONNECTED TO THE IVF HE WOULD LIKE TO TAKE A WALK IN THE HALLWAY. SAFETY PRECAUTIONS FOR FALL INITIATED, CALL LIGHT IN REACH, WILL ENDORSE TO DAY RN FOR KATIA.
--- NOTE | 2017-08-06 07:15 | NUR ---
RN OPEN NOTES RECEIVED BEDSIDE REPORT FROM NIGHT RN. PATIENT IS IN BED, AWAKE, ALERT AND ORIENTED TO NAME, PLACE AND TIME. NO SIGNS AND SYMPTOMS OF DISTRESS OR PAIN. BED IN LOW POSITION, LOCKED AND TWO SIDE RAILS ARE UP FOR SAFETY. CALL LIGHT WITHIN REACH FOR SAFETY. WILL CONTINUE TO MONITOR AND ASSESS PATIENT.
[2017-08-06] MEDS: HOME MED - RANEXA 1000MG PO SCH ×3 (07:43→16:33)
[2017-08-06] MEDS: CLOPIDOGREL BISULFATE 75 MG TABLET PO SCH ×2 (07:43→08:22)
[2017-08-06] MEDS: CITALOPRAM HYDROBROMIDE 10 MG TABLET PO SCH ×2 (07:43→08:24)
[2017-08-06] MEDS: METOPROLOL TARTRATE 50 MG TABLET PO SCH ×3 (07:43→16:33)
[2017-08-06] MEDS: VALSARTAN 80 MG TABLET PO SCH ×2 (07:43→08:25)
[2017-08-06 08:00] VITALS: BP 129/66
[2017-08-06] MEDS: PANTOPRAZOLE 40 MG VIAL IV SCH (11:30)
--- NOTE | 2017-08-06 11:45 | NUR ---
NEW IV STARTED: RIGHT FOREARM 20G. OLD IV SITE REMOVED. PATIENT TOLERATED PROCEDURE WELL
[2017-08-06 16:00] VITALS: BP 121/68
[2017-08-06] MEDS: ACETAMINOPHEN 650 MG/20.3 ML UDC NG PRN (17:39)
--- NOTE | 2017-08-06 18:56 | NUR ---
RN CLOSING NOTES PATIENT IS IN BED, ALERT AND ORIENTED TO NAME, PLACE AND TIME. SATURATING 98% ON ON RA, NO SIGNS AND SYMPTOMS OF DISTRESS. DENIED PAIN. IV ACCESS INTACT AND PATENT. SAFETY PRECAUTIONS FOR FALL INITIATED, BED IN LOW POSITION, LOCKED AND TWO SIDE RAILS ARE UP FOR SAFETY. CALL LIGHT IN REACH. ALL NURSING CARE PROVIDED. PATIENT KEPT CLEAN AND DRY. EGD TOMORROW AT 3PM. WILL ENDORSE TO NIGHT RN FOR KATIA.
--- NOTE | 2017-08-06 19:35 | NUR ---
RN OPENING NOTES RECEIVED REPORT FROM DAYSHIFT RN CHUY. FOUND Pt AWAKE, RESTING IN BED. FAMILY VISITING AT BEDSIDE. NO S/S OF ACUTE DISTRESS OR SOB NOTED. Pt IS A/OX4, VERBAL, ABLE TO MAKE NEEDS KNOWN. WILL BE NPO STARTING MN TONIGHT FOR EGD TOMORRW 08/07. IV ACCESS ON RFA #20G. SAFETY MEASURES IN PLACE. BED LOW, LOCKED, HOB ELEVATED, SIDE RAILS UP, CALL LIGHT AND BEDSIDE TABLE WITHIN REACH. WILL CONTINUE TO MONITOR Pt THROUGHOUT THE NIGHT FOR SAFETY.
[2017-08-06 20:00] VITALS: BP 138/67
[2017-08-06] MEDS: ZOLPIDEM TARTRATE 5 MG TABLET PO PRN (23:07)
[2017-08-06] MEDS: IV NS 0.9% 1,000 ML IV PRN (23:07)
[2017-08-07] MEDS: HYDROMORPHONE INJ 0.5 MG/0.5 ML SYRINGE IV PRN ×2 (00:53→06:59)
--- NOTE | 2017-08-07 06:35 | NUR ---
RN CLOSING NOTES NO SIGNIFICANT CHANGES IN Pt's CONDITION. Pt REMAINS STABLE AT THIS TIME. NO S/S OF ACUTE DISTRESS OR SOB NOTED DURING THE NIGHT. ALL NEEDS MET AND ATTENDED TO. SAFETY MEASURES IN PLACE. WILL ENDORSE TO DAYSHIFT RN FOR Pt's KATIA.
[2017-08-07 07:22] LABS: BASOPHILS % (AUTO) 0.4 % (0.0-2.0); EOSINOPHILS % (AUTO) 3.3 % (0.0-6.0); HEMATOCRIT 33 % (39-51); HEMOGLOBIN 11.2 g/dL (13.5-17.5); LYMPHOCYTES # (AUTO) 1.2 /CMM (0.8-4.8); LYMPHOCYTES % (AUTO) 19.2 % (20.0-44.0); MEAN CORPUSCULAR HGB CONC 34 g/dl (31.0-36.0); MEAN CORPUSCULAR VOLUME 92 fL (80-96); MONOCYTES # (AUTO) 0.4 /CMM (0.1-1.30); MONOCYTES % (AUTO) 6.5 % (2.0-12.0); NEUTROPHILS # (AUTO) 4.4 /CMM (1.8-8.9); NEUTROPHILS % (AUTO) 70.6 % (43.0-81.0); PLATELET COUNT (AUTO) 232 /CMM (150-450); RDW COEFFICIENT OF VARIATION 14.1 (11.5-15.0); RED BLOOD CELL COUNT(AUTO) 3.63 MIL/uL (4.5-6.0); WHITE BLOOD COUNT (AUTO) 6.3 K/uL (4.3-11.0)
--- NOTE | 2017-08-07 07:22 | NUR ---
MS RN NOTES RECEIVED PATIENT ASLEEP IN BED, EASILY AWAKENS. HOB ELEVATED. ON ROOM AIR, RESPIRATION EVEN AND UNLABORED. PT FOR EGD TODAY, NPO STATUS MAINTAINED. IV ACCESS ON RFA #20 INTACT AND PATENT, IVF OF NS @ 75 ML/HR INFUSING, NO S/S OF INFILTRATIONS NOTED. SAFETY MEASURES IN PLACE. BED IN LOW/LOCKED POSITION WITH CALL LIGHT IN REACH. WILL CONTINUE TO MONITOR PT.
[2017-08-07 07:49] LABS: CALCIUM, SERUM 8.5 mg/dL (8.5-10.1); CARBON DIOXIDE 28 mmol/L (21-32); CHLORIDE 107 mmol/L (98-107); GLUCOSE 105 mg/dL (74-106); MAGNESIUM 1.9 mg/dL (1.8-2.4); PHOSPHORUS 3.6 mg/dL (2.5-4.9); POTASSIUM 4.1 mmol/L (3.5-5.1); SODIUM SERUM 142 mmol/L (136-145); UREA NITROGEN, BLOOD 18 mg/dL (7-18)
[2017-08-07 08:28] VITALS: BP 119/58
[2017-08-07] MEDS: CITALOPRAM HYDROBROMIDE 10 MG TABLET PO SCH (09:00)
[2017-08-07] MEDS: CLOPIDOGREL BISULFATE 75 MG TABLET PO SCH (09:00)
[2017-08-07] MEDS: METOPROLOL TARTRATE 50 MG TABLET PO SCH ×2 (09:00→17:00)
[2017-08-07] MEDS: VALSARTAN 80 MG TABLET PO SCH (09:00)
[2017-08-07] MEDS: HOME MED - RANEXA 1000MG PO SCH ×2 (09:00→17:00)
--- NOTE | 2017-08-07 09:12 | NUR ---
RN NOTES PATIENT IS NPO AND FOR EGD TODAY. ALL MORNING P.O. MEDS NOT ADMINISTERED, PT IS AWARE.
[2017-08-07] MEDS ORDERED: HYDROMORPHONE INJ 2 MG/ML DISP.SYRIN IV PRN (12:30)
[2017-08-07] MEDS: PANTOPRAZOLE 40 MG VIAL IV SCH (12:30)
[2017-08-07 15:54] VITALS: BP 151/71
--- NOTE | 2017-08-07 16:48 | NUR ---
RN NOTES PATIENT PICK-UP BY [facility]. NURSE JUST NOW VIA HIS BED FOR EGD. A/O X 4 IN NO ACUTE SIGNS OF DISTRESS.
[2017-08-07 18:10] VITALS: BP 132/69
--- NOTE | 2017-08-07 18:19 | NUR ---
RN NOTES PATIENT RETURNED FROM [facility]. S/P EGD AWAKE AND ALERT X3, NO SIGNS OF DISTRESS NOTED. PER [facility] NURSE ARPI, PT NOTED WITH ESOPHAGITIS AND HIATAL HERNIA. V/S CHECKED: BP 132/69MMHG, P 66, R 18, T 97.8F AND SP02 OF 98%. DR BRUMFIELD ORDER PT PROTONIX 40MG TAB BID AND CLEAR LIQUIDS DIET AND ADVANCE TOLERATED. WILL CONTINUE TO MONITOR
--- NOTE | 2017-08-07 18:52 | NUR ---
MS RN CLOSING NOTES PATIENT RESTING IN BED AT MODERATE HIGH BACKREST POSITION. A/O X4. AMBULATORY AND ABLE TO MAKE NEEDS KNOWN. ON ROOM AIR, BREATHING EVEN WITH NO SOB NOTED. IV ACCESS ON RFA #20 INTACT AND PATENT, IVF OF NS @ 75 ML/HR INFUSING, NO S/S OF INFILTRATIONS NOTED. ALL SAFETY MEASURES IN PLACE. KEPT HOB ELEVATED. BED IN LOW/LOCKED POSITION WITH CALL LIGHT IN REACH. ALL NEEDS AND CARE ATTENDED WELL. WILL ENDORSE TO LEHR STRIPPER NURSE FOR KATIA.
--- NOTE | 2017-08-07 19:35 | NUR ---
RN OPENING NOTES RECEIVED REPORT FROM DAYSHIFT JOSSUE RICHARDSON. FOUND Pt AWAKE, RESTING IN BED. NO S/S OF ACUTE DISTRESS OR SOB NOTED. Pt IS A/OX4, VERBAL, ABLE TO MAKE NEEDS KNOWN. IV ACCESS ON RFA #20G. NS @ 75ML/HR. Pt IS DRINKING WELL, WANTS THE IV OFF FOR NOW. SAFETY MEASURES IN PLACE. BED LOW, LOCKED, HOB ELEVATED, SIDE RAILS UP, CALL LIGHT AND BEDSIDE TABLE WITHIN REACH. WILL CONTINUE TO MONITOR Pt THROUGHOUT THE NIGHT FOR SAFETY.
[2017-08-07 20:00] VITALS: BP 149/57
--- NOTE | 2017-08-07 20:07 | NUR ---
pt is requesting to take his missed dose of metoprolol, plavix, diovan, ranexa, and celexa. paged dr. Óscar Cordova to relay the concern and get a new order. awaiting for his call back.
--- NOTE | 2017-08-07 20:15 | NUR ---
Óscar Cordova informed of pt's wishes to take his missed meds from the am. Said ok and to give one time dose for tonight and to resume current meds as is.
[2017-08-07] MEDS ORDERED: CITALOPRAM HYDROBROMIDE 20 MG TABLET PO ONE (21:00)
[2017-08-07] MEDS ORDERED: VALSARTAN 80 MG TABLET PO ONE (21:00)
[2017-08-07] MEDS ORDERED: CLOPIDOGREL BISULFATE 75 MG TABLET PO ONE (21:00)
[2017-08-07] MEDS: PANTOPRAZOLE 40 MG TABLET.DR PO SCH (21:00)
[2017-08-07] MEDS ORDERED: METOPROLOL TARTRATE 50 MG TABLET PO ONE (21:00)
[2017-08-07] MEDS: ACETAMINOPHEN 650 MG/20.3 ML UDC NG PRN (21:02)
[2017-08-07] MEDS ORDERED: HOME MED MISCELLANEOUS PO ONE (21:30)
[2017-08-07] MEDS: IV NS 0.9% 1,000 ML IV PRN (23:40)
[2017-08-07] MEDS: ZOLPIDEM TARTRATE 5 MG TABLET PO PRN (23:41)
[2017-08-08 08:00] VITALS: BP 140/68
--- NOTE | 2017-08-08 08:00 | NUR ---
RN NOTES patient a/ox4, verbally responsive, breathing even and unlabored, no distress noted, denies pain at this time, colostomy draining and noted with diarrhea, per patient he's been having diarrhea for weeks, and he's concern about not knowing the reason why, stool culture result is negative, kept comfortable, needs attended, safety measures in placed, call light within reach, will continue to monitor.
[2017-08-08] MEDS: CITALOPRAM HYDROBROMIDE 10 MG TABLET PO SCH (08:53)
[2017-08-08] MEDS: VALSARTAN 80 MG TABLET PO SCH (08:53)
[2017-08-08] MEDS: PANTOPRAZOLE 40 MG TABLET.DR PO SCH (08:53)
[2017-08-08] MEDS: CLOPIDOGREL BISULFATE 75 MG TABLET PO SCH (08:53)
[2017-08-08 08:54] VITALS: BP 140/68
[2017-08-08] MEDS: METOPROLOL TARTRATE 50 MG TABLET PO SCH (08:54)
[2017-08-08] MEDS: HOME MED - RANEXA 1000MG PO SCH (09:00)
--- NOTE | 2017-08-08 15:13 | NUR ---
RN NOTES Patient a/ox34, verbally responsive, denies pain or discomfort, patient received discharged instructions and verbalized understanding, prescription given to patient and explained. piv removed and pressure applied with gauze and tape. skin assessment completed, skin dry and intact, no changes. belongings reconciled and complete, nothing is missing. patient was able to tolerate full liquid diet, denies abdominal pain. Patient seen by Dr. Humphries today. Patient left the hospital in no distress via private car.
== END 2017-08-08 15:10 | disposition home or self-care (01) | DRG 247 ==
LOC: ER 06:49 → MEDSG2 10:08
PROVIDERS: ADMIT Internal Medicine Nephrology; ATTEND Internal Medicine Nephrology
PROC: 0DB58ZX Excision of Esophagus, Via Natural or Artificial Opening Endoscopic, Diagnostic (ICD-10-PCS; principal; 2017-08-07 17:26)
PROC: 0DB68ZX Excision of Stomach, Via Natural or Artificial Opening Endoscopic, Diagnostic (ICD-10-PCS; principal; 2017-08-07 17:26)
DX: K56.609 Unspecified intestinal obstruction, unspecified as to partial versus complete obstruction (principal); J84.10 Pulmonary fibrosis, unspecified; I11.0 Hypertensive heart disease with heart failure; I50.22 Chronic systolic (congestive) heart failure; K22.2 Esophageal obstruction; Z95.1 Presence of aortocoronary bypass graft; I25.10 Atherosclerotic heart disease of native coronary artery without angina pectoris; Z85.048 Personal history of other malignant neoplasm of rectum, rectosigmoid junction, and anus; Z93.3 Colostomy status; Z98.61 Coronary angioplasty status; Z87.891 Personal history of nicotine dependence; Z79.82 Long term (current) use of aspirin; Z92.3 Personal history of irradiation; Z88.5 Allergy status to narcotic agent; Z79.899 Other long term (current) drug therapy; K29.70 Gastritis, unspecified, without bleeding; K44.9 Diaphragmatic hernia without obstruction or gangrene
CPT/HCPCS: 36415; 71045-TC; 74018; 80048-TC; 80076-TC; 81000-TC; 82962-TC; 83690-TC; 83735-TC; 84100-TC; 85025-TC; 85610-TC; 85730-TC; 87045-TC; 87081-TC; 88305-TC; 88313-TC; 88342; 89055; A4606; A6253; C9113; J2405; J2704; J3490; J7030; J7040; Z7610

== ENCOUNTER 2017-09-30 17:24 | Inpatient (IN) | payer MEDICAID, MEDICARE ==
[~2017-09-30] VITALS: Ht 180.3 cm; Wt 72.1 kg
[~2017-09-30 17:24] MED LIST changes: +ALBU8.5H8 IH; -ASPI-605 PO; -HYDR-3974 PO; +RANO10003 PO; -ZOLP10TA6 PO
--- NOTE | 2017-09-30 17:31 | NUR ---
PT ASSISTED TO ED BED 08 VIA WHEELCHAIR. PT STS THAT HE WAS SENT BY DR. PAK. PT IS COMPLAINING OF FEELING WEAK AND DIZZY. PT ALSO STS "I'VE BEEN HAVING BOWEL OBSTRUCTION SINCE SUNDAY." PT HAS A H/O COLON CA AND HAS EXPERIENCED BOWEL INSTRUCTIONS IN THE PAST. HE STS THAT WORSENING ABD DISCOMFORT. PT GOWNED AND PLACED ON CONT CARDIAC AND POX MONITORING. WILL CONT TO MONITOR Addendum: 09/30/17 at 1845 by EVAN PT HAS EXPERIENCED BOWEL OBSTRUCTIONS IN THE PAST.
[2017-09-30] MEDS ORDERED: IV NS 0.9% 1,000 ML BAG IV ONE (18:00)
[2017-09-30 18:20] LABS: BASOPHILS % (AUTO) 0.7 % (0.0-2.0); EOSINOPHILS % (AUTO) 2.7 % (0.0-6.0); HEMATOCRIT 42 % (39-51); HEMOGLOBIN 13.9 g/dL (13.5-17.5); LYMPHOCYTES # (AUTO) 1.1 /CMM (0.8-4.8); LYMPHOCYTES % (AUTO) 22.6 % (20.0-44.0); MEAN CORPUSCULAR HEMOGLOBIN 31 PG (26.0-33.0); MEAN CORPUSCULAR HGB CONC 33 g/dl (31.0-36.0); MEAN CORPUSCULAR VOLUME 94 fL (80-96); MONOCYTES # (AUTO) 0.3 /CMM (0.1-1.30); MONOCYTES % (AUTO) 7.1 % (2.0-12.0); NEUTROPHILS # (AUTO) 3.2 /CMM (1.8-8.9); NEUTROPHILS % (AUTO) 66.9 % (43.0-81.0); PLATELET COUNT (AUTO) 311 /CMM (150-450); RDW COEFFICIENT OF VARIATION 12.7 (11.5-15.0); RED BLOOD CELL COUNT(AUTO) 4.53 MIL/uL (4.5-6.0); WHITE BLOOD COUNT (AUTO) 4.7 K/uL (4.3-11.0)
[2017-09-30 18:32] LABS: CALCIUM, SERUM 9.3 mg/dL (8.5-10.1); CARBON DIOXIDE 27 mmol/L (21-32); CHLORIDE 101 mmol/L (98-107); CREATININE 1.9 mg/dL (0.6-1.3); GLUCOSE 113 mg/dL (74-106); POTASSIUM 4.2 mmol/L (3.5-5.1); SODIUM SERUM 136 mmol/L (136-145); UREA NITROGEN, BLOOD 39 mg/dL (7-18)
[2017-09-30 18:37] LABS: ALANINE AMINOTRANSFERASE 14 U/L (12-78); ALBUMIN 3.3 g/dL (3.4-5.0); ALKALINE PHOSPHATASE 86 U/L (46-116); ASPARTATE AMINOTRANSFERASE 13 U/L (15-37); BILIRUBIN,DIRECT 0.2 mg/dL (0.0-0.2); BILIRUBIN,TOTAL 0.6 mg/dL (0.2-1.0); LIPASE 114 U/L (73-393); TOTAL PROTEIN, SERUM 7.3 g/dL (6.4-8.2)
--- NOTE | 2017-09-30 18:55 | NUR ---
PAGED DR MICHELLE CEBALLOS
[2017-09-30] MEDS ORDERED: FURO40TA5 PO (19:24)
[2017-09-30] MEDS ORDERED: ZOLP10TA2 PO (19:24)
[2017-09-30] MEDS ORDERED: TRAM50TA2 PO (19:24)
[2017-09-30] MEDS ORDERED: ASPI-1169 PO (19:24)
--- NOTE | 2017-09-30 19:26 | NUR ---
REPORT GIVEN TO JOSSUE MACK FOR KATIA.
[2017-09-30] MEDS ORDERED: ACETAMINOPHEN 325 MG TABLET PO STA (21:05)
[2017-09-30 21:15] VITALS: BP 141/68
--- NOTE | 2017-09-30 21:15 | NUR ---
RN MS ADMITTING NOTES RECEIVED PATIENT VIA GURNEY, AWAKE ALERT AND ORIENTED X 4, RESPIRATION EVEN AND UNLABORED WITH EQUAL RISE AND FALL OF CHEST ,DENIES ANY PAIN OR DISCOMFORT AT THIS TIME, NOTED IV SITE TO RIGHT AC INTACT AND PATENT, NO REDNESS , NO INFILTRATION PRESENT, ORIENTED TO STAFF AND ROOM AND CALL LIGHT, CALL LIGHT KEPT WITHIN REACH, BODY ASSESSMENT DONE NOTED WITH RIGHT LOWER ABDOMEN OSTOMY SITE WITH BAG INTACT, ACCORDING TO PATIENT DOES NOT WANT TO CHANGE AT THIS TIME, PICTURES TAKEN , BELONGINGS LIST DONE, NOTED WITH MEDICATIONS, WITH PATIENT CONSENT OKAY TO REMOVE MEDICATIONS PLACE IN SAFETY BAG FOR PHARMACY TO VERIFY PATIENT IS AWARE, ALL NEEDS ATTENDED AT THIS TIME, PAGED MD DR MICHELLE CEBALLOS TO NOTIFY OF ADMISSION AND ORDERS , AWAITING RESPONSE PATIENT REMAINS COMFORTABLE AT THIS TIME.
[2017-09-30] MEDS ORDERED: ACETAMINOPHEN 325 MG TABLET ONE (21:17)
[2017-09-30 22:00] VITALS: BP 141/68
--- NOTE | 2017-09-30 22:25 | NUR ---
RN MS NOTES CALLED AND SPOKE TO DR MICHELLE CEBALLOS REGARDING ADMITTING ORDERS, WITH NEW ORDERS FOR IV NS AT 100ML/HR. AMBIEN TAKEN HOME 10 MG. TO CONTINUE HOME MEDICATIONS REGULAR DIET AM LABS CBC AND BMP TELEPHONE ORDERS READ BACK. NEW ORDERS NOTED AND CARRIED OUT.
[2017-09-30 22:36] LABS: APPEARANCE,URINE CLEAR (CLEAR); BILIRUBIN,URINE NEGATIVE (NEGATIVE); BLOOD, URINE NEGATIVE Ery/uL (NEGATIVE); COLOR,URINE YELLOW (YELLOW); KETONES,URINE NEGATIVE (NEGATIVE); LEUKOCYTE ESTERASE ,URINE NEGATIVE (NEGATIVE); NITRITE, URINE NEGATIVE (NEGATIVE); PH,URINE 5.5 (5.0-8.0); PROTEIN,URINE NEGATIVE (NEGATIVE); UGLUCOSE NEGATIVE (NEGATIVE); UROBILINOGEN,URINE 0.2 EU/dL (0.2)
[2017-09-30] MEDS: IV NS 0.9% 1,000 ML IV SCH (23:00)
[2017-09-30] MEDS: ZOLPIDEM TARTRATE 10 MG TABLET PO PRN (23:00)
[2017-09-30] MEDS ORDERED: IV NS 0.9% 1,000 ML BAG IV SCH (23:00)
--- NOTE | 2017-09-30 23:00 | NUR ---
RN MS NOTES PATIENT REQUESTING FOR AMBIEN GIVEN ORDERED PER MD WILL CONTINUE TO MONITOR.
--- NOTE | 2017-10-01 03:16 | NUR ---
rn ms notes eric noted effective at this time,patient is sleeping.
--- NOTE | 2017-10-01 05:50 | NUR ---
RN MS NOTES PATIENT COMPLAINT OF HEADACHE REQUESTING FOR TYLENOL, CALLED AND SPOKE TO DR. MICHELLE CEBALLOS, WITH NEW TELEPHONE ORDER AND READ BACK FOR TYLENOL 650MG PO q6HR PRN FOR MILD PAIN. ORDER NOTED AND CARRIED OUT.
[2017-10-01] MEDS: ACETAMINOPHEN 325 MG TABLET PO PRN (06:12)
--- NOTE | 2017-10-01 06:15 | NUR ---
RN MS NOTES TYLENOL GIVEN ORDERED FOR HEADACHE. ASKED PATIENT PAIN LEVEL STATES " WELL YOU KNOW A HEADACHE". WILL CONTINUE TO MONITOR .
--- NOTE | 2017-10-01 06:37 | NUR ---
RN CLOSING NOTES PATIENT REMAINS IN BED, AWAKE ALERT AND ORIENTED X 4, RESPIRATIONS EVEN AND UNLABORED WITH EQUAL RISE AND FALL OF CHEST. IV SITE TO RIGHT AC INTACT AND PATENT, NO REDNESS , NO INFILTRATION PRESENT, IVF RUNNING ORDERED. COLOSTOMY BAG CHANGED BY PATIENT STATES " I WANT TO DO MY OWN CHANGING." BAG INTACT AT THIS TIME, SAFETY PRECAUTIONS RENDERED, FLUIDS OFFERED TOLERATED, ALL NEEDS ATTENDED AT THIS TIME, REMAINS COMFORTABLE AT THIS TIME, CALL LIGHT KEPT WITHIN REACH.WILL CONTINUE TO MONITOR AND ENDORSE TO NEXT SHIFT.
[2017-10-01 07:25] LABS: CALCIUM, SERUM 8.3 mg/dL (8.5-10.1); CARBON DIOXIDE 25 mmol/L (21-32); CHLORIDE 103 mmol/L (98-107); CREATININE 1.6 mg/dL (0.6-1.3); GLUCOSE 107 mg/dL (74-106); POTASSIUM 3.9 mmol/L (3.5-5.1); SODIUM SERUM 136 mmol/L (136-145); UREA NITROGEN, BLOOD 38 mg/dL (7-18)
--- NOTE | 2017-10-01 07:25 | NUR ---
RN OPENING NOTES RECEIVED PATIENT IN STABLE CONDITION, RESTING IN BED, A/OX4, ABLE TO VERBALIZE NEEDS. NO ACUTE DISTRESS, NO SOB. DENIED PAIN AT THE MOMENT. IV SITE INTACT AND PATENT. COLOSTOMY BAG IN PLACE. KEPT PATIENT SAFE AND COMFORTABLE. BED IN LOW/LOCKED POSITION, SIDERAILS UPX2, CALL LIGHT IN REACH. WILL CONTINUE TO MONITOR ACCORDINGLY.
[2017-10-01 07:47] LABS: BASOPHILS % (AUTO) 0.3 % (0.0-2.0); EOSINOPHILS % (AUTO) 3.1 % (0.0-6.0); HEMATOCRIT 38 % (39-51); HEMOGLOBIN 12.5 g/dL (13.5-17.5); LYMPHOCYTES # (AUTO) 1.3 /CMM (0.8-4.8); LYMPHOCYTES % (AUTO) 24.7 % (20.0-44.0); MEAN CORPUSCULAR HEMOGLOBIN 32 PG (26.0-33.0); MEAN CORPUSCULAR HGB CONC 33 g/dl (31.0-36.0); MEAN CORPUSCULAR VOLUME 95 fL (80-96); MONOCYTES # (AUTO) 0.5 /CMM (0.1-1.30); MONOCYTES % (AUTO) 8.5 % (2.0-12.0); NEUTROPHILS # (AUTO) 3.4 /CMM (1.8-8.9); NEUTROPHILS % (AUTO) 63.4 % (43.0-81.0); PLATELET COUNT (AUTO) 254 /CMM (150-450); RDW COEFFICIENT OF VARIATION 13.6 (11.5-15.0); RED BLOOD CELL COUNT(AUTO) 3.95 MIL/uL (4.5-6.0); WHITE BLOOD COUNT (AUTO) 5.3 K/uL (4.3-11.0)
[2017-10-01 08:00] VITALS: BP 140/67
--- NOTE | 2017-10-01 09:00 | NUR ---
RN NOTES DR PAK AT BEDSIDE TALKING TO THE PATIENT.
[2017-10-01] MEDS: ASPIRIN 81 MG TAB.CHEW PO SCH (09:19)
[2017-10-01] MEDS: CITALOPRAM HYDROBROMIDE 10 MG TABLET PO SCH (09:21)
[2017-10-01] MEDS: VALSARTAN 40 MG TABLET PO SCH (09:22)
[2017-10-01] MEDS: CLOPIDOGREL BISULFATE 75 MG TABLET PO SCH (09:23)
[2017-10-01] MEDS ORDERED: TRAMADOL HCL 50 MG TABLET PO PRN (09:30)
[2017-10-01] MEDS ORDERED: FUROSEMIDE 40 MG TABLET PO SCH (09:30)
[2017-10-01] MEDS ORDERED: METOPROLOL TARTRATE 50 MG TABLET PO SCH (09:30)
[2017-10-01] MEDS ORDERED: ZOLPIDEM TARTRATE 10 MG TABLET PO PRN (09:30)
[2017-10-01] MEDS: IV NS 0.9% 1,000 ML IV SCH ×2 (09:52→20:12)
[2017-10-01] MEDS ORDERED: RANEXA 1000 MG PO SCH (10:00)
--- NOTE | 2017-10-01 12:00 | NUR ---
RN NOTES PATIENT WANTS TO TALK TO DR MICHELLE CEBALLOS AND WANTED A DILAUDID ORDER FOR PAIN. CALLED DR CEBALLOS'S OFFICE; PER LOGISTICS SPECIALIST/CLEAN ROOM OPERATOR, WILL PAGE DR CEBALLOS. AWAITING FOR DR CEBALLOS'S REPLY.
--- NOTE | 2017-10-01 14:15 | NUR ---
DR MICHELLE CEBALLOS AT BEDSIDE TALKING TO PATIENT. NEW ORDERS NOTED AND CARRIED OUT.
[2017-10-01] MEDS: HYDROMORPHONE INJ 2 MG/ML DISP.SYRIN IV PRN ×2 (15:13→20:13)
[2017-10-01 16:00] VITALS: BP_SYST 132; BP_DIAS 62; BP_DIAS 65
--- NOTE | 2017-10-01 16:30 | NUR ---
RN NOTES PATIENT CAME BACK FROM CT SCAN. TOLERATED WELL. WILL CONTINUE TO MONITOR ACCORDINGLY.
--- NOTE | 2017-10-01 19:25 | NUR ---
RN CLOSING NOTES PATIENT IN STABLE CONDITION. ALL NEEDS ATTENDED AND PROVIDED. KEPT PATIENT SAFE AND COMFORTABLE. ALL DUE MEDS GIVEN ORDERED. PAIN MEDICATIONS GIVEN ORDERED. BED IN LOW/LOCKED POSITION, SIDERAILS UPX2, CALL LIGHT IN REACH. ENDORSED TO NIGHT RN FOR KATIA.
--- NOTE | 2017-10-01 19:25 | NUR ---
MS RN INITIAL NOTES Report received. Patient received in bed on the phone talking to daughter. Introduced myself and offered assistance. Alert and oriented x4, verbally responsive. Denies any pain. No SOB noted. Not in any type of distress. IV on right AC #18g: patent and intact with NS running @100ml/hr. Patient is reported to be ambulatory with assist. Uses urinal and colostomy bag in place. Safety measures in place. Will continue to monitor and assess patient.
[2017-10-01 20:00] VITALS: BP 131/62
[2017-10-01] MEDS: METOPROLOL TARTRATE 50 MG TABLET PO SCH (21:52)
[2017-10-01] MEDS: RANEXA 1000 MG PO SCH (21:52)
[2017-10-01] MEDS: ZOLPIDEM TARTRATE 10 MG TABLET PO PRN (22:50)
--- NOTE | 2017-10-01 23:01 | NUR ---
MS RN NOTES Patient awake. Provided snacks as requested. Assistance provided and met. Will continue to monitor patient
[2017-10-02] MEDS: IV NS 0.9% 1,000 ML IV SCH ×2 (05:22→16:12)
--- NOTE | 2017-10-02 05:32 | NUR ---
MS RN NOTED Patient sleeping in bed, easily aroused. No moaning or face grimacing noted. IV on right AC #18g: patent and intact with NS @100ml/hr running, tolerating well. Unlabored breathing noted. No SOB noted or reported. Not in any type of distress. Continue on IVF and hospitalization as planned. Safety measures in place. Bed in lowest position with bed alarm on and call light within reach. All needs anticipated and met. Will continue to monitor patient.
[2017-10-02 06:59] LABS: BASOPHILS % (AUTO) 0.3 % (0.0-2.0); EOSINOPHILS % (AUTO) 1.8 % (0.0-6.0); HEMATOCRIT 38 % (39-51); HEMOGLOBIN 12.6 g/dL (13.5-17.5); LYMPHOCYTES % (AUTO) 17.5 % (20.0-44.0); MEAN CORPUSCULAR HEMOGLOBIN 32 PG (26.0-33.0); MEAN CORPUSCULAR HGB CONC 33 g/dl (31.0-36.0); MEAN CORPUSCULAR VOLUME 95 fL (80-96); MONOCYTES # (AUTO) 0.4 /CMM (0.1-1.30); MONOCYTES % (AUTO) 6.6 % (2.0-12.0); NEUTROPHILS # (AUTO) 4.1 /CMM (1.8-8.9); NEUTROPHILS % (AUTO) 73.8 % (43.0-81.0); PLATELET COUNT (AUTO) 265 /CMM (150-450); RDW COEFFICIENT OF VARIATION 13.7 (11.5-15.0); RED BLOOD CELL COUNT(AUTO) 3.96 MIL/uL (4.5-6.0); WHITE BLOOD COUNT (AUTO) 5.6 K/uL (4.3-11.0)
--- NOTE | 2017-10-02 07:21 | NUR ---
MS RN CLOSING NOTES Patient remained in bed. No changes noted or reported. Safety measures in place. Report given to JOSSUE Norman.
[2017-10-02 07:22] LABS: ALANINE AMINOTRANSFERASE 13 U/L (12-78); ALKALINE PHOSPHATASE 76 U/L (46-116); ASPARTATE AMINOTRANSFERASE 12 U/L (15-37); BILIRUBIN,TOTAL 0.4 mg/dL (0.2-1.0); CALCIUM, SERUM 8.3 mg/dL (8.5-10.1); CARBON DIOXIDE 25 mmol/L (21-32); CHLORIDE 100 mmol/L (98-107); CREATININE 1.5 mg/dL (0.6-1.3); GLUCOSE 126 mg/dL (74-106); MAGNESIUM 1.7 mg/dL (1.8-2.4); PHOSPHORUS 4.2 mg/dL (2.5-4.9); POTASSIUM 3.8 mmol/L (3.5-5.1); SODIUM SERUM 136 mmol/L (136-145); TOTAL PROTEIN, SERUM 6.5 g/dL (6.4-8.2); UREA NITROGEN, BLOOD 30 mg/dL (7-18)
[2017-10-02 08:00] VITALS: BP_SYST 118; BP_DIAS 59; BP_DIAS 62
[2017-10-02] MEDS: CLOPIDOGREL BISULFATE 75 MG TABLET PO SCH (09:13)
[2017-10-02] MEDS: CITALOPRAM HYDROBROMIDE 10 MG TABLET PO SCH (09:14)
[2017-10-02] MEDS: ASPIRIN 81 MG TAB.CHEW PO SCH (09:14)
[2017-10-02] MEDS: VALSARTAN 40 MG TABLET PO SCH (09:16)
[2017-10-02] MEDS: METOPROLOL TARTRATE 50 MG TABLET PO SCH ×2 (09:17→21:00)
[2017-10-02] MEDS: RANEXA 1000 MG PO SCH ×2 (09:40→21:16)
[2017-10-02] MEDS ORDERED: Magnesium 1GM/D5W 100ML PREMIX 100 ML IV SCH (11:00)
[2017-10-02] MEDS ORDERED: ONDANSETRON HCL/PF 4 MG/2 ML VIAL IV PRN (11:30)
[2017-10-02] MEDS: Magnesium 1GM/D5W 100ML PREMIX 100 ML IV SCH ×2 (11:39→12:41)
--- NOTE | 2017-10-02 14:59 | NUR ---
NOTIFIED DR CEBALLOS OF PATIENT'S MICROLAB RESULT OF MRSA NARES. NEW ORDERS OF BACTROBAN OINTMENT NOTED AND CARRIED OUT.
[2017-10-02 16:00] VITALS: BP 100/52
[2017-10-02] MEDS: ACETAMINOPHEN 325 MG TABLET PO PRN (17:32)
--- NOTE | 2017-10-02 18:00 | NUR ---
UNABLE TO COLLECT SPECIMEN FOR STOOL CULTURE, WILL ENDORSE TO NIGHT RN
--- NOTE | 2017-10-02 19:20 | NUR ---
MS RN INITIAL NOTES Report received at bedside. Patient received in bed, resting comfortably and awake. Alert and oriented x4, verbally responsive. Denies any pain at the moment. No SOB noted. Not in any type of distress. On contact isolation for MRSA nares. IV on left forearm #20g: patent and intact with NS running @100ml/hr. Uses urinal and colostomy bag in place. Safety measures in place. Will continue to monitor and assess patient.
[2017-10-02 20:00] VITALS: BP 92/54
[2017-10-02] MEDS: MUPIROCIN OINT 2% 22 GM TUBE SCH (21:18)
[2017-10-02] MEDS: HYDROMORPHONE INJ 2 MG/ML DISP.SYRIN IV PRN (23:01)
[2017-10-03] MEDS: IV NS 0.9% 1,000 ML IV SCH (00:01)
[2017-10-03] MEDS: HYDROMORPHONE INJ 2 MG/ML DISP.SYRIN IV PRN ×2 (03:46→09:09)
--- NOTE | 2017-10-03 05:36 | NUR ---
MS RN - NEW ORDER NOTES New order of Abdominal Xray 1view KUB STAT by Karey Ji NP. Patient informed.
--- NOTE | 2017-10-03 05:44 | NUR ---
MS RN NOTES patient in bed, noted sleeping comfortably and snoring. Awaiting for X-ray.
[2017-10-03 06:59] LABS: BASOPHILS % (AUTO) 0.3 % (0.0-2.0); EOSINOPHILS % (AUTO) 1.6 % (0.0-6.0); HEMATOCRIT 36 % (39-51); LYMPHOCYTES # (AUTO) 1.3 /CMM (0.8-4.8); LYMPHOCYTES % (AUTO) 16.4 % (20.0-44.0); MEAN CORPUSCULAR HEMOGLOBIN 32 PG (26.0-33.0); MEAN CORPUSCULAR HGB CONC 33 g/dl (31.0-36.0); MEAN CORPUSCULAR VOLUME 96 fL (80-96); MONOCYTES # (AUTO) 0.5 /CMM (0.1-1.30); MONOCYTES % (AUTO) 6.3 % (2.0-12.0); NEUTROPHILS % (AUTO) 75.4 % (43.0-81.0); PLATELET COUNT (AUTO) 242 /CMM (150-450); RDW COEFFICIENT OF VARIATION 13.5 (11.5-15.0); RED BLOOD CELL COUNT(AUTO) 3.78 MIL/uL (4.5-6.0); WHITE BLOOD COUNT (AUTO) 7.9 K/uL (4.3-11.0)
--- NOTE | 2017-10-03 07:30 | NUR ---
MS RN NOTES PATIENT RECEIVED RESTING INSIDE ROOM. AWAKE, ALERT AND ORIENTED X 4, VERBALLY RESPONSIVE AND RESPONDS TO VERBAL AND TACTILE STIMULI. BREATHING EVEN AND UNLABORED. ABLE TO MAKE NEEDS KNOWN AND FOLLOW SIMPLE INSTRUCTIONS. NO CHANGES IN LOC NOTED. PATIENT AFEBRILE, SKIN DRY AND WARM TO TOUCH. IV INTACT AND PATENT, NO SWELLING OR BLEEDING ON SITE NOTED. WILL CONTINUE TO MONITOR. BED LOCKED AND IN LOW POSITION. BILATERAL UPPER SIDE RAILS UP AND LOCKED. MAINTAINED ISOLATION PRECAUTIONS. CALL LIGHT WITHIN EASY REACH
[2017-10-03 07:35] LABS: ALANINE AMINOTRANSFERASE 12 U/L (12-78); ALBUMIN 2.9 g/dL (3.4-5.0); ALKALINE PHOSPHATASE 73 U/L (46-116); ASPARTATE AMINOTRANSFERASE 13 U/L (15-37); BILIRUBIN,TOTAL 0.4 mg/dL (0.2-1.0); CALCIUM, SERUM 8.3 mg/dL (8.5-10.1); CARBON DIOXIDE 26 mmol/L (21-32); CHLORIDE 104 mmol/L (98-107); GLUCOSE 115 mg/dL (74-106); PHOSPHORUS 2.9 mg/dL (2.5-4.9); POTASSIUM 3.6 mmol/L (3.5-5.1); SODIUM SERUM 138 mmol/L (136-145); TOTAL PROTEIN, SERUM 6.3 g/dL (6.4-8.2); UREA NITROGEN, BLOOD 22 mg/dL (7-18)
--- NOTE | 2017-10-03 07:38 | NUR ---
MS RN CLOSING NOTES Patient remained in bed, intermittently sleeping, easily aroused. No changes in LOC. Have episodes of anxiety. Abdominal X-ray done. IV on left forearm #20g: patent and intact with NS @100ml/hr running, tolerating well. Possible discharge today. Safety measures in place. Bed in lowest position, locked and call light within reach. Remains on contact isolation for MRSA Nares with atbx oint tx. Report endorsed to JOSSUE Aceves.
[2017-10-03 08:00] VITALS: BP 146/57
[2017-10-03] MEDS: CLOPIDOGREL BISULFATE 75 MG TABLET PO SCH (08:53)
[2017-10-03] MEDS: CITALOPRAM HYDROBROMIDE 10 MG TABLET PO SCH (08:54)
[2017-10-03] MEDS: VALSARTAN 40 MG TABLET PO SCH (08:54)
[2017-10-03] MEDS: ASPIRIN 81 MG TAB.CHEW PO SCH (08:54)
[2017-10-03] MEDS: METOPROLOL TARTRATE 50 MG TABLET PO SCH ×2 (08:54→21:50)
[2017-10-03] MEDS: MUPIROCIN OINT 2% 22 GM TUBE SCH ×2 (09:08→22:03)
[2017-10-03] MEDS: RANEXA 1000 MG PO SCH ×2 (09:08→21:50)
[2017-10-03] MEDS ORDERED: IV NS 0.9% 1,000 ML IV PRN (09:33)
[2017-10-03] MEDS ORDERED: FUROSEMIDE 40 MG TABLET PO ONE (14:30)
--- NOTE | 2017-10-03 14:34 | NUR ---
MS RN NOTES REPORT GIVEN TO ARPAN MARCUM FOR KATIA.
--- NOTE | 2017-10-03 15:00 | NUR ---
pt. just voided prior to rn entering rm.states time was 15 minutes.bladder scan done and retained urine [address] carrera informed and requested scan be done closer to void time.pt. refusing.scant amt. of stool fragments in colostomy bag.states some abd. discomfort.
[2017-10-03 16:00] VITALS: BP 127/54
[2017-10-03] MEDS: METOCLOPRAMIDE HCL 10 MG/2 ML VIAL IV SCH ×3 (16:00→21:54)
[2017-10-03] MEDS: ACETAMINOPHEN 325 MG TABLET PO PRN (16:06)
[2017-10-03 16:51] LABS: APPEARANCE,URINE SL CLOUDY (CLEAR); BILIRUBIN,URINE NEGATIVE (NEGATIVE); BLOOD, URINE NEGATIVE Ery/uL (NEGATIVE); COLOR,URINE YELLOW (YELLOW); KETONES,URINE NEGATIVE (NEGATIVE); LEUKOCYTE ESTERASE ,URINE NEGATIVE (NEGATIVE); NITRITE, URINE NEGATIVE (NEGATIVE); PH,URINE 5.5 (5.0-8.0); PROTEIN,URINE NEGATIVE (NEGATIVE); UGLUCOSE NEGATIVE (NEGATIVE); UROBILINOGEN,URINE 0.2 EU/dL (0.2)
--- NOTE | 2017-10-03 18:00 | NUR ---
medicated for pain with tylenol per pt's request.inpatient pharmacist for dr. wood in and wrote a note.pt. now on full liq. diet.
--- NOTE | 2017-10-03 18:30 | NUR ---
routine ua sent.
--- NOTE | 2017-10-03 19:10 | NUR ---
endorsed to eve. beckman to monitor output and contact dr. carrera if necessary.
--- NOTE | 2017-10-03 19:30 | NUR ---
RN NOTES RECEIVED PT. AWAKE ON BED, A/OX3, COLOSTOMY BAG IN PLACE, DENIES PAIN, NO SOB, BED IN LOCKED POSITION, CALL LIGHT WITHIN REACH, SIDERAISLUPX2, WILL CONTINUE TO MONITOR
[2017-10-03 20:00] VITALS: BP 125/61
[2017-10-03] MEDS: ZOLPIDEM TARTRATE 10 MG TABLET PO PRN ×2 (23:10)
--- NOTE | 2017-10-03 23:12 | NUR ---
RN NOTES PT. ASKED FOR SLEEPING PILL- AMBIEN 5 MG PO GIVEN ORDERED, V/S STABLE
[2017-10-04] MEDS: METOCLOPRAMIDE HCL 10 MG/2 ML VIAL IV SCH ×3 (04:00→09:44)
--- NOTE | 2017-10-04 06:34 | NUR ---
RN NOTES SLEEPING BUT AROUSABLE, DENIES PAIN, NO SOB, MORNING CARE RENDERED, CALL LIGHT WITHIN REACH, SIDERIALSUPX2, PT. NEEDS ATTENDED
[2017-10-04 07:06] LABS: BASOPHILS % (AUTO) 0.3 % (0.0-2.0); EOSINOPHILS % (AUTO) 1.6 % (0.0-6.0); HEMATOCRIT 36 % (39-51); HEMOGLOBIN 11.9 g/dL (13.5-17.5); LYMPHOCYTES # (AUTO) 1.3 /CMM (0.8-4.8); MEAN CORPUSCULAR HEMOGLOBIN 32 PG (26.0-33.0); MEAN CORPUSCULAR HGB CONC 34 g/dl (31.0-36.0); MEAN CORPUSCULAR VOLUME 95 fL (80-96); MONOCYTES # (AUTO) 0.7 /CMM (0.1-1.30); MONOCYTES % (AUTO) 9.1 % (2.0-12.0); NEUTROPHILS # (AUTO) 5.2 /CMM (1.8-8.9); PLATELET COUNT (AUTO) 240 /CMM (150-450); RDW COEFFICIENT OF VARIATION 13.4 (11.5-15.0); RED BLOOD CELL COUNT(AUTO) 3.75 MIL/uL (4.5-6.0); WHITE BLOOD COUNT (AUTO) 7.3 K/uL (4.3-11.0)
--- NOTE | 2017-10-04 07:20 | NUR ---
RN INITIAL NOTES: PATIENT RESTING IN BED. NONLABORED BREATHING NOTED ON ROOM AIR. DENYING PAIN AT THE MOMENT. IV SITE ON LEFT FOREARM PATENT AND INTACT. BED IN LOWEST LOCKED POSITION. CALL LIGHT WITHIN REACH
[2017-10-04 07:22] LABS: CALCIUM, SERUM 8.6 mg/dL (8.5-10.1); CARBON DIOXIDE 25 mmol/L (21-32); CHLORIDE 106 mmol/L (98-107); CREATININE 1.1 mg/dL (0.6-1.3); GLUCOSE 107 mg/dL (74-106); MAGNESIUM 1.9 mg/dL (1.8-2.4); PHOSPHORUS 2.5 mg/dL (2.5-4.9); POTASSIUM 3.6 mmol/L (3.5-5.1); SODIUM SERUM 141 mmol/L (136-145); UREA NITROGEN, BLOOD 15 mg/dL (7-18)
[2017-10-04 08:00] VITALS: BP_SYST 12; BP_SYST 120; BP_DIAS 60
[2017-10-04 09:00] VITALS: BP 115/50
[2017-10-04] MEDS: METOPROLOL TARTRATE 50 MG TABLET PO SCH (09:00)
[2017-10-04] MEDS: VALSARTAN 40 MG TABLET PO SCH (09:00)
[2017-10-04] MEDS: ASPIRIN 81 MG TAB.CHEW PO SCH (09:44)
[2017-10-04] MEDS: CITALOPRAM HYDROBROMIDE 10 MG TABLET PO SCH (09:44)
[2017-10-04] MEDS: CLOPIDOGREL BISULFATE 75 MG TABLET PO SCH (09:44)
[2017-10-04] MEDS: MUPIROCIN OINT 2% 22 GM TUBE SCH (09:54)
[2017-10-04] MEDS: RANEXA 1000 MG PO SCH (10:00)
--- NOTE | 2017-10-04 11:11 | NUR ---
RANEXA: PHARMACY UNABLE TO PROVIDE MEDICATION. PATIENT'S SUPPLY RAN OUT PER MAYDA PER PHARMACY. REQUESTED PATIENT TO PROVIDE MORE. VERBALIZED UNDERSTANDING OF NECESSITY OF MEDICATION. PATIENT DENYING CHEST PAIN AT THE MOMENT
--- NOTE | 2017-10-04 16:15 | NUR ---
RN CLOSING NOTES: PATIENT DISCHARGED HOME PER DR CEBALLOS. ALL VALUABLES RETURNED TO PATIENT. IV LINE REMOVED. DIRECT PRESSURE APPLIED TO SITE FOR 2 MINUTES. BRUISING NOTED AROUND SITE OF 5 CM BY 5 CM. EDUCATED PATIENT ON ADVERSE EFFECTS OF ASPIRIN AND PLAVIX, BRUISING. OFFERED PATIENT ICE PACK, PATIENT REFUSED DENYING PAIN. PATIENT REFUSING SKIN PICTURE OF BRUISE. PATIENT REFUSING SKIN PICTURE OF COLOSTOMY. PATIENT REFUSED COLOSTOMY CHANGE, STATING " I WILL DO IT ON MY OWN!" INFECTION CONTROL DISCUSSED WELL BENEFITS AND RISKS OF NOT CHANGING THE BAG EDUCATED PATIENT ON IMPORTANCE TO FOLLOW UP WITH PRIMARY HEALTH CARE PROVIDER, EDUCATED HIM REGARDING DR CEBALLOS'S INSTRUCTIONS. DISCUSSED WITH CONTINUE MEDICATIONS WELL LIST, REGLAN PRESCRIPTION GIVEN TO PATIENT DISCUSSED WITH PATIENT RESULT OF MRSA IN NARES, DISCUSSED INFECTION PRECAUTIONS, PROVIDED PATIENT WITH BACTROBAN PER MD ORDERS, PATIENT VERBALIZED UNDERSTANDING OF WHEN TO APPLY IT NO NAUSEA OR VOMITING NOTED DURING SHIFT. DISCUSSED WITH PATIENT DR CEBALLOS'S ORDER TO ADVANCE DIET TOLERATED AT HOME. ALL VALUABLES GIVEN TO PATIENT INCLUDING HIS MEDICATIONS PATIENT ACCOMPANIED TO [employer] BY A STAFF MEMBER. PATIENT LEFT VIA TAXI, VERIFIED ADDRESS WITH PATIENT AND WITH [place]
== END 2017-10-04 15:45 | disposition home or self-care (01) | DRG 469 ==
LOC: ER 17:25 → MED 20:24
PROVIDERS: ADMIT Internal Medicine Nephrology; ATTEND Internal Medicine Nephrology
DX: N17.9 Acute kidney failure, unspecified (principal); J84.112 Idiopathic pulmonary fibrosis; K56.7 Ileus, unspecified; E83.51 Hypocalcemia; I11.0 Hypertensive heart disease with heart failure; I50.9 Heart failure, unspecified; K31.84 Gastroparesis; E86.0 Dehydration; Z95.1 Presence of aortocoronary bypass graft; Z93.3 Colostomy status; Z98.61 Coronary angioplasty status; Z90.49 Acquired absence of other specified parts of digestive tract; Z87.891 Personal history of nicotine dependence; Z79.82 Long term (current) use of aspirin; Z92.3 Personal history of irradiation; Z88.5 Allergy status to narcotic agent; Z79.899 Other long term (current) drug therapy; I25.10 Atherosclerotic heart disease of native coronary artery without angina pectoris; Z85.038 Personal history of other malignant neoplasm of large intestine; E78.5 Hyperlipidemia, unspecified
CPT/HCPCS: 36415; 71045-TC; 74018; 80048-TC; 80053-TC; 80076-TC; 81000-TC; 83690-TC; 83735-TC; 84100-TC; 85025-TC; 87045-TC; 87081-TC; A4606; J1170; J2405; J2765; J3475; J7030; Z7610

== ENCOUNTER 2017-10-23 14:21 | Emergency (ER) | payer MEDICARE, MEDICAID ==
[~2017-10-23] VITALS: Ht 180.3 cm; Wt 68.9 kg
[~2017-10-23 14:21] MED LIST changes: -ALBU8.5H8 IH; +ASPI-1169 PO; +FURO40TA5 PO; +TRAM50TA2 PO; +ZOLP10TA2 PO
--- NOTE | 2017-10-23 14:35 | NUR ---
SENT BY DR. GARCIA FOR HYPOTENSION POSSIBLE DEHYDRATION. PT NOT IN DISTRESS. SKIN IS WARM TO TOUCH AND NON DIAPHORETIC. PT IS AFEBRILE. VSS
[2017-10-23 14:48] LABS: BASOPHILS % (AUTO) 0.6 % (0.0-2.0); EOSINOPHILS % (AUTO) 2.7 % (0.0-6.0); HEMATOCRIT 39 % (39-51); HEMOGLOBIN 12.7 g/dL (13.5-17.5); LYMPHOCYTES # (AUTO) 1.5 /CMM (0.8-4.8); LYMPHOCYTES % (AUTO) 21.9 % (20.0-44.0); MEAN CORPUSCULAR HEMOGLOBIN 30 PG (26.0-33.0); MEAN CORPUSCULAR HGB CONC 33 g/dl (31.0-36.0); MEAN CORPUSCULAR VOLUME 92 fL (80-96); MONOCYTES # (AUTO) 0.4 /CMM (0.1-1.30); MONOCYTES % (AUTO) 5.7 % (2.0-12.0); NEUTROPHILS # (AUTO) 4.9 /CMM (1.8-8.9); NEUTROPHILS % (AUTO) 69.1 % (43.0-81.0); PLATELET COUNT (AUTO) 361 /CMM (150-450); RDW COEFFICIENT OF VARIATION 12.4 (11.5-15.0); RED BLOOD CELL COUNT(AUTO) 4.24 MIL/uL (4.5-6.0)
[2017-10-23] MEDS: IV NS 0.9% 1,000 ML BAG IV ONE (14:51)
[2017-10-23 15:04] LABS: TROPONIN I < 0.017 ng/mL (0.00-0.056)
[2017-10-23 15:12] LABS: CARBON DIOXIDE 29 mmol/L (21-32); CHLORIDE 102 mmol/L (98-107); CREATININE 1.3 mg/dL (0.6-1.3); GLUCOSE 104 mg/dL (74-106); POTASSIUM 4.6 mmol/L (3.5-5.1); SODIUM SERUM 137 mmol/L (136-145); UREA NITROGEN, BLOOD 24 mg/dL (7-18)
[2017-10-23 15:21] LABS: ALANINE AMINOTRANSFERASE 17 U/L (12-78); ALBUMIN 3.4 g/dL (3.4-5.0); ALKALINE PHOSPHATASE 84 U/L (46-116); ASPARTATE AMINOTRANSFERASE 14 U/L (15-37); BILIRUBIN,DIRECT 0.1 mg/dL (0.0-0.2); BILIRUBIN,TOTAL 0.5 mg/dL (0.2-1.0); TOTAL PROTEIN, SERUM 6.9 g/dL (6.4-8.2)
[2017-10-23] MEDS: IV NS 0.9% 500 ML BAG IV ONE (15:56)
[2017-10-23 16:18] LABS: APPEARANCE,URINE Clear (CLEAR); BILIRUBIN,URINE Negative (NEGATIVE); BLOOD, URINE Negative Ery/uL (NEGATIVE); COLOR,URINE Yellow (YELLOW); KETONES,URINE Negative (NEGATIVE); LEUKOCYTE ESTERASE ,URINE Negative (NEGATIVE); NITRITE, URINE Negative (NEGATIVE); PH,URINE 5.5 (5.0-8.0); PROTEIN,URINE Negative (NEGATIVE); UGLUCOSE Negative (NEGATIVE); UROBILINOGEN,URINE 0.2 EU/dL (0.2)
[2017-10-23 16:30] VITALS: BP 118/62
--- NOTE | 2017-10-23 16:31 | NUR ---
Patient discharged to home in stable condition. Written and verbal after care instructions given. Patient verbalizes understanding of instruction.IV removed. Catheter intact and site benign. Pressure and 4x4 applied to site. No bleeding noted.
== END 2017-10-23 16:35 | disposition home or self-care (01) ==
LOC: ER 14:23
DX: E86.0 Dehydration (principal); I10 Essential (primary) hypertension; E78.00 Pure hypercholesterolemia, unspecified; Z88.5 Allergy status to narcotic agent; Z60.2 Problems related to living alone; Z79.82 Long term (current) use of aspirin; Z79.899 Other long term (current) drug therapy; Z85.038 Personal history of other malignant neoplasm of large intestine; Z93.3 Colostomy status; Z95.1 Presence of aortocoronary bypass graft
CPT/HCPCS: 36415; 80048-TC; 80076-TC; 81000-TC; 84484-TC; 85025-TC; A4606; J7030; J7040; Z7610

== ENCOUNTER 2017-11-01 09:14 | Emergency (ER) | payer MEDICARE, MEDICAID ==
[~2017-11-01] VITALS: Ht 185.4 cm; Wt 77.2 kg
--- NOTE | 2017-11-01 09:30 | NUR ---
AAOx3, came to ER c/o BURNING SENSATION TO RECTUM AND BLOOD IN STOOL YESTERDAY. RR is even and unlabored with nad noted. Skin is warm and dry. Awaiting md for eval.
--- NOTE | 2017-11-01 09:33 | NUR ---
Dr Jenkins at [facility] for eval.
[2017-11-01 09:51] LABS: BASOPHILS # (AUTO) 0.1 /CMM (0.0-0.2); BASOPHILS % (AUTO) 0.8 % (0.0-2.0); EOSINOPHILS % (AUTO) 2.7 % (0.0-6.0); HEMATOCRIT 38 % (39-51); HEMOGLOBIN 12.6 g/dL (13.5-17.5); LYMPHOCYTES # (AUTO) 1.2 /CMM (0.8-4.8); LYMPHOCYTES % (AUTO) 17.5 % (20.0-44.0); MEAN CORPUSCULAR HEMOGLOBIN 30 PG (26.0-33.0); MEAN CORPUSCULAR HGB CONC 33 g/dl (31.0-36.0); MEAN CORPUSCULAR VOLUME 92 fL (80-96); MONOCYTES # (AUTO) 0.4 /CMM (0.1-1.30); MONOCYTES % (AUTO) 5.5 % (2.0-12.0); NEUTROPHILS # (AUTO) 5.1 /CMM (1.8-8.9); NEUTROPHILS % (AUTO) 73.5 % (43.0-81.0); PLATELET COUNT (AUTO) 300 /CMM (150-450); RDW COEFFICIENT OF VARIATION 12.7 (11.5-15.0); RED BLOOD CELL COUNT(AUTO) 4.16 MIL/uL (4.5-6.0)
[2017-11-01] MEDS ORDERED: IV NS 0.9% 1,000 ML BAG IV ONE (10:00)
[2017-11-01 10:02] LABS: CALCIUM, SERUM 8.9 mg/dL (8.5-10.1); CARBON DIOXIDE 29 mmol/L (21-32); CHLORIDE 105 mmol/L (98-107); GLUCOSE 98 mg/dL (74-106); POTASSIUM 4.2 mmol/L (3.5-5.1); SODIUM SERUM 138 mmol/L (136-145); UREA NITROGEN, BLOOD 21 mg/dL (7-18)
[2017-11-01 10:08] LABS: ALANINE AMINOTRANSFERASE 14 U/L (12-78); ALBUMIN 3.6 g/dL (3.4-5.0); ALKALINE PHOSPHATASE 93 U/L (46-116); ASPARTATE AMINOTRANSFERASE 13 U/L (15-37); BILIRUBIN,DIRECT 0.1 mg/dL (0.0-0.2); BILIRUBIN,TOTAL 0.5 mg/dL (0.2-1.0); TOTAL PROTEIN, SERUM 7.1 g/dL (6.4-8.2)
[2017-11-01 10:13] LABS: CREATININE 1.2 mg/dL (0.6-1.3)
--- NOTE | 2017-11-01 10:24 | NUR ---
PAGED DR. GOMEZ
--- NOTE | 2017-11-01 10:56 | NUR ---
PAGED DR BRUMFIELD
[2017-11-01 11:24] VITALS: BP 108/61
--- NOTE | 2017-11-01 11:24 | NUR ---
IV removed. Catheter intact and site benign. Pressure and 4x4 applied to site. No bleeding noted.Patient discharged to home in stable condition. Written and verbal after care instructions given. Patient verbalizes understanding of instruction.
== END 2017-11-01 11:28 | disposition home or self-care (01) ==
LOC: ER 09:16
DX: K62.89 Other specified diseases of anus and rectum (principal); I10 Essential (primary) hypertension; E78.00 Pure hypercholesterolemia, unspecified; Z88.5 Allergy status to narcotic agent; Z60.2 Problems related to living alone; Z79.82 Long term (current) use of aspirin; Z90.49 Acquired absence of other specified parts of digestive tract; Z95.1 Presence of aortocoronary bypass graft
CPT/HCPCS: 36415; 80048; 80076; 85025; 99284; A4606; J7030; Z7610

== ENCOUNTER 2017-11-30 11:03 | Inpatient (IN) | payer MEDICAID, MEDICARE ==
[~2017-11-30] VITALS: Ht 180.3 cm; Wt 67.1 kg
--- NOTE | 2017-11-30 11:05 | NUR ---
BIB DAUGHTER C/O "SHAKING AND JITTERY" SINCE THIS AM, SPO2=84% ON RA. A/OX 3, BREATHING EVEN AND UNLABORED. PLACED ON 2L OXYGEN VIA NC, O2 SAT 91% ON 2L OXYGEN. VITALS STABLE. SAFETY AND COMFORT MEASURES IN PLACE. AWAITING MD ORDERS.
[2017-11-30 11:38] LABS: BASOPHILS % (AUTO) 0.3 % (0.0-2.0); EOSINOPHILS % (AUTO) 0.3 % (0.0-6.0); HEMATOCRIT 32 % (39-51); HEMOGLOBIN 10.3 g/dL (13.5-17.5); LYMPHOCYTES # (AUTO) 0.8 /CMM (0.8-4.8); LYMPHOCYTES % (AUTO) 5.8 % (20.0-44.0); MEAN CORPUSCULAR HGB CONC 32 g/dl (31.0-36.0); MEAN CORPUSCULAR VOLUME 91 fL (80-96); MONOCYTES # (AUTO) 0.4 /CMM (0.1-1.30); NEUTROPHILS # (AUTO) 12.2 /CMM (1.8-8.9); NEUTROPHILS % (AUTO) 90.6 % (43.0-81.0); PLATELET COUNT (AUTO) 487 /CMM (150-450); RDW COEFFICIENT OF VARIATION 12.1 (11.5-15.0); WHITE BLOOD COUNT (AUTO) 13.4 K/uL (4.3-11.0)
[2017-11-30 11:59] LABS: CALCIUM, SERUM 8.8 mg/dL (8.5-10.1); CARBON DIOXIDE 23 mmol/L (21-32); CHLORIDE 105 mmol/L (98-107); CREATININE 1.2 mg/dL (0.6-1.3); GLUCOSE 201 mg/dL (74-106); POTASSIUM 3.7 mmol/L (3.5-5.1); SODIUM SERUM 143 mmol/L (136-145); UREA NITROGEN, BLOOD 12 mg/dL (7-18)
[2017-11-30] MEDS ORDERED: CLONIDINE HCL 0.1 MG TABLET ONE (12:06)
[2017-11-30 12:07] LABS: TROPONIN I 0.227 ng/mL (0.00-0.056)
[2017-11-30] MEDS ORDERED: hydrOXYzine 10 MG TABLET ONE (12:11)
[2017-11-30 12:12] LABS: ALANINE AMINOTRANSFERASE 10 U/L (12-78); ALBUMIN 2.6 g/dL (3.4-5.0); ALKALINE PHOSPHATASE 95 U/L (46-116); ASPARTATE AMINOTRANSFERASE 18 U/L (15-37); B-TYPE NATRIURETIC PEPTIDE 19757 PG/ML (0-125); BILIRUBIN,DIRECT 0.2 mg/dL (0.0-0.2); BILIRUBIN,TOTAL 0.7 mg/dL (0.2-1.0); TOTAL PROTEIN, SERUM 6.7 g/dL (6.4-8.2)
--- NOTE | 2017-11-30 12:16 | NUR ---
PER EDDI CARROLL TO GIVE HYDROXIZINE 25MG PO, GIVEN PO.
[2017-11-30] MEDS ORDERED: CLONIDINE HCL 0.1 MG TABLET PO ONE (12:30)
[2017-11-30] MEDS ORDERED: IV NS 0.9% 1,000 ML BAG IV ONE ×2 (12:30→13:00)
[2017-11-30] MEDS ORDERED: hydrOXYzine HCL INJ 50 MG/ML VIAL IM ONE (12:30)
--- NOTE | 2017-11-30 12:41 | NUR ---
Dr. Yandel Swan.
[2017-11-30] MEDS ORDERED: VANCOMYCIN 1 GM in IV D5W 250 ML IV ONE (13:00)
[2017-11-30] MEDS ORDERED: PIPERACILLIN /TAZOBACTAM 3.375 G in IV D5W 50 ML IV ONE (13:00)
--- NOTE | 2017-11-30 13:11 | NUR ---
URINE OBTAINED AND SENT TO LAB.
[2017-11-30 13:16] LABS: APPEARANCE,URINE Clear (CLEAR); BILIRUBIN,URINE Negative (NEGATIVE); BLOOD, URINE Small Ery/uL (NEGATIVE); COLOR,URINE Yellow (YELLOW); KETONES,URINE Negative (NEGATIVE); LEUKOCYTE ESTERASE ,URINE Small (NEGATIVE); NITRITE, URINE Negative (NEGATIVE); PROTEIN,URINE 30 mg/dl (NEGATIVE); UGLUCOSE Negative (NEGATIVE); UROBILINOGEN,URINE 0.2 EU/dL (0.2)
--- NOTE | 2017-11-30 13:21 | NUR ---
REPORT GIVEN TO AYO MARCUM FOR KATIA UPON ADMISSION.
--- NOTE | 2017-11-30 13:21 | NUR ---
Junito zepeda in [facility] - 11/30/17 at 1321 by ADDISON URINE OBTAINED AND SENT TO LAB.
--- NOTE | 2017-11-30 13:23 | NUR ---
DR. CEBALLOS PAGED 2ND TIME.
[2017-11-30 13:26] LABS: BACTERIA,URINE Few /HPF (None Seen); SQUAMOUS EPITHELIAL CELL,UR Rare /HPF (None Seen)
[2017-11-30] MEDS ORDERED: IRBE150T28 PO (13:38)
[2017-11-30] MEDS ORDERED: LORA0.5T PO (13:38)
[2017-11-30] MEDS ORDERED: CIPR500T5 PO (13:38)
[2017-11-30] MEDS ORDERED: ASPIRIN 81 MG TAB.CHEW ONE (13:39)
--- NOTE | 2017-11-30 13:39 | NUR ---
CONTACT INFO: LUIS MELGAR (DAUGHTER) [phone]
[2017-11-30 14:00] VITALS: BP 139/80
[2017-11-30] MEDS ORDERED: ASPIRIN 81 MG TAB.CHEW PO ONE (14:00)
--- NOTE | 2017-11-30 14:00 | NUR ---
CEO AND PRESIDENTCARTON FORMING MACHINE TENDER NOTE PT ARRIVED TO TELE UNIT VIA GURNEY ACCOMPANIED BY ER STAFF AND FAMILY IN STABLE CONDITION. PT ABLE TO AMBULATE TO BED WITH MINIMAL ASSISTANCE. PT IS A/O X3, AFEBRILE. PUPILS ARE REACTIVE TO LIGHT. BILATERAL HAND EXAM PROCTOR ARE STRONG AND EQUAL. RESPIRATIONS ARE EVEN AND UNLABORED, NOT IN ANY ACUTE DISTRESS NOTED. CURRENTLY ON O2 @2L/MIN VIA NC, SATURATING 94%. LUNG SOUNDS ARE CLEAR TO AUSCULTATE. ABDOMEN IS SOFT AND NONDISTENDED. BOWEL SOUNDS ARE PRESENT IN ALL 4 QUADRANTS UPON AUSCULTATION W/ COLOSTOMY NOTED TO LLQ. DENIES ANY BLADDER DISCOMFORT. DENIES ANY CHEST PAIN, DIZZINESS, N/V, SOB. IV SITE TO LAC 20G INTACT, NO INFILTRATION NOTED. DRESSING KEPT CLEAN AND DRY. SAFETY MEASURES ARE IN PLACE. INSTRUCTED PT TO USE CALL LIGHT WHEN ASSISTANCE IS NEEDED, CALL LIGHT IS LEFT WITHIN REACH. RECEIVED ADMIT ORDERS PER DR. GRAF, NOTED AND CARRIED OUT. TELE LEADS PLACED READING SR WITH PVCS AT 68.WILL CONTINUE TO MONITOR THROUGHOUT SHIFT FOR CONTINUITY OF CARE.
--- NOTE | 2017-11-30 14:00 | NUR ---
PATIENT TRANSPORTED TO [facility] VIA ACLS PROTOCOL. RNAYO TO PROVIDE KATIA.
[2017-11-30 14:42] VITALS: BP 138/78
[2017-11-30] MEDS ORDERED: FEE PK DOSING 1 MIN EA MC ONE (14:55)
[2017-11-30 16:00] VITALS: BP 145/70
[2017-11-30] MEDS: ZOSYN IVPB 3.375 G in IV D5W 50ml IV SCH (17:18)
--- NOTE | 2017-11-30 18:23 | NUR ---
MS RN CLOSING NOTES PT ABLE TO MAKE NEEDS KNOWN. NEEDS MET AND ANTICIPATED. PT IS A/O X3, AFEBRILE. RESPIRATIONS ARE EVEN AND UNLABORED, NOT IN ANY ACUTE DISTRESS NOTED. PUPILS ARE REACTIVE TO LIGHT, BILATERAL HAND TEACHER TUTOR ARE STRONG AND EQUAL. PT DENIES ANY PAIN, SOB, N/V AT THIS TIME. PT CURRENTLY ON O2 @2L/MIN VIA NC, TOLERATING WELL. IV SITE INTACT, NO INFILTRATION NOTED. DRESSING KEPT CLEAN AND DRY. SAFETY MEASURES ARE IN PLACE. BED IS IN ITS LOWEST AND LOCKED POSITION. REMINDED PT TO USE CALL LIGHT WHEN ASSISTANCE IS NEEDED, CALL LIGHT IS LEFT WITHIN REACH. WILL ENDORSE TO NEXT SHIFT FOR CONTINUITY OF CARE.
--- NOTE | 2017-11-30 19:00 | NUR ---
SALES REPRESENTATIVE ELECTRIC SERVICE OPENING NOTE RECEIVE PATIENT AWAKE IN BED, NO SOB OR DISTRESS NOTED, CALL LIGHT WITHIN REACH. SAFETY MEASURES IMPLEMENTED. WILL CONTINUE TO MONITOR THROUGHOUT SHIFT.
[2017-11-30 20:00] VITALS: BP 156/78
[2017-11-30] MEDS ORDERED: ALBUTEROL HALF STRENGTH 1.25 MG/3 ML VIAL.NEB NEB PRN (20:30)
--- NOTE | 2017-11-30 20:30 | NUR ---
PAGEMilka AND SPOKE TO DR. BA PT REQUESTING BREATHING TREATMENT AND ANXIETY MEDICATION PT O2 SAT AT 97% PER DR. BA ORDERS GIVE ALBUTEROL HS 1.25MG/3ML (1/2 UD) NEB Q6 PRN AND ATIVAN 0.5 MG PO QHS PRN READ BACK AND VERIFIED ORDERS NOTED AND CARRIED OUT
[2017-11-30] MEDS: LORAZEPAM 0.5 MG TABLET PO PRN (21:14)
--- NOTE | 2017-11-30 21:48 | NUR ---
TELE NOTES 2144: UPON APPLYING WARM COMPRESS TO THE PT SHOULDER PT NOTED ANXIOUS AND HAVING SOB. PT KEPT COMFORTABLE 2145:REPORTED HAVING V TACH 8 SECONDS IN THE TELE MONITOR AT 2145 CHARGE NURSE CAME TO SEE PT CHECKED VS BP 153/87 MO 115 R 24 T 98.7 02 SAT 88% IN 3LPM VIA NC. PLACE ON 15LPM NON REBREATHER MASK 02 SAT AT 100% PLACED CALL TO BOB MARTINEZ SPOKE TO DR. MARTÍNEZ RELAYED PT CURRENT CHANGE OF CONDITION, LABS AND V TACH 8 SECONDS AT 2145. PER DR. MARTÍNEZ ORDER STAT EKG, ABG, SERIAL TROPONIN, CARDIO CONSULT DR. RAMAN, ATIVAN 0.5 MG IVP ONCE NOW, TRANSFER TO [facility], REVIEW ALL HOME MEDICATIONS TO DR. MARTÍNEZ RESUME ALL HOME MEDS READ BACK AND VERIFIED ORDERS NOTED AND CARRIED OUT.
--- NOTE | 2017-11-30 22:00 | NUR ---
TELE NOTES PT REPORTED NOT HAVING SOB, CHECKED 02 SAT AT 100%. PT IS CALM AND NOT IN DISTRESS. PLACED BACK ON 3LPM VIA NC 02 SAT AT 97%
[2017-11-30 22:16] LABS: ABG BASE EXCESS -6.8 mmol/L; ABG OXYGEN SATURATION 97.9 % (92.0-98.5); ABG PCO2 24.6 mmHg (35.0-45.0); ABG PH 7.431 (7.350-7.450); ABG PO2 133.4 mmHg (75.0-100.0); COHb 0.3 % (0.5-1.5); MetHb 0.5 % (0.0-1.5); O2Hb 97.1 % (94.0-97.0); SITE, ABG Right Radial; VENT MODE, BG non-rebreather 100%
--- NOTE | 2017-11-30 22:28 | NUR ---
RT NOTE STAT EKG COMPLETED. RESULTS RELAYED TO CHARGE NURSE AND RN.
--- NOTE | 2017-11-30 22:29 | NUR ---
RT NOTE ABG COMPLETED. RESULTS RELAYED TO CHARGE NURSE.
[2017-11-30] MEDS ORDERED: LORAZEPAM INJ 2 MG/ML VIAL IV ONE (22:45)
--- NOTE | 2017-11-30 22:45 | NUR ---
TRANSFER TRANSFER PT TO [facility] VIA BED ACLS PROTOCOL. WITH MS CHARGE NURSE. NO INCIDENT. REPORT GIVEN TO [facility] RN. DISCUSSED CHARGE NURSE [facility] TO CONTINUE MED RECONCILIATION PLACED IN CHART AND PHARMACY BOX AND TO FOLLOW UP WITH THE PHARMACY. EXPLAINED PLAN OF CARE TO JOSEPH SMITH (DAUGTHER AT BEDSIDE) DAUGTHER APPRECIATIVE TO NURSES.
[2017-11-30 22:48] LABS: CALCIUM, SERUM 8.5 mg/dL (8.5-10.1); CARBON DIOXIDE 23 mmol/L (21-32); CHLORIDE 107 mmol/L (98-107); CREATININE 1.2 mg/dL (0.6-1.3); GLUCOSE 168 mg/dL (74-106); POTASSIUM 4.1 mmol/L (3.5-5.1); SODIUM SERUM 144 mmol/L (136-145); UREA NITROGEN, BLOOD 11 mg/dL (7-18)
--- NOTE | 2017-11-30 22:50 | NUR ---
RN NOTES RECEIVED PATIENT FROM [facility] VIA BED ACCOMPANIED BY THREE STAFF. PATIENT INITIALLY WAS STABLE FOR ABOUT 15 MINUTES ON NASAL CANNULA AT 6LPM. AFTER A WHILE PATIENT'S HEART RATE WENT UP FROM 112 TO HIGH 185BPM WITH 02SAT AT 91-93% AND BP 162/82. METOPROLOL 50MG GIVEN. NOTED PATIENT TO BE VERY DISTRESS, RESPIRATION 35, CHANGE NASAL CANNULA TO NON REBREATHER MASK AND OXYGEN UP TO 15LPM. CALLED MD, SPOKE WITH DR BA AND GAVE ORDERS FOR CARDIZEM 10MG IV PUSH AND ATIVAN 1MG IV PUSH AND TO TRANSFER TO ICU. NOTED AND CARRIED OUT. IN ICU, DR BA CALLED TO GIVE ADDITIONAL ORDERS OF ASPIRAN 85MG X1, TROPONIN LEVEL STAT AND CLONIDINE 0.1MG Q6H PRN FOR SBP>165. ORDERS NOTED AND TRANSCRIBED. REPORT GIVEN TO ICU NURSE.
[2017-11-30 22:51] LABS: MAGNESIUM 1.5 mg/dL (1.8-2.4); PHOSPHORUS 3.8 mg/dL (2.5-4.9)
[2017-11-30 22:58] LABS: TROPONIN I 4.966 ng/mL (0.00-0.056)
[2017-11-30] MEDS ORDERED: LORAZEPAM 0.5 MG TABLET PO PRN (23:30)
[2017-11-30] MEDS ORDERED: ZOLPIDEM TARTRATE 10 MG TABLET PO PRN (23:30)
[2017-12-01] VITALS (54 sets, daily range): BP systolic 102–160; BP diastolic 51–117
[2017-12-01] MEDS ORDERED: DILTIAZEM HCL 50 MG IV IV ONE
[2017-12-01] MEDS: LORAZEPAM INJ 2 MG/ML VIAL IV PRN ×2 (00:09→06:56)
[2017-12-01] MEDS ORDERED: DILTIAZEM HCL 25 MG IV ONE (00:19)
--- NOTE | 2017-12-01 00:20 | NUR ---
Received patient from [facility] per bed awake alert and oriented x 3.Patient anxious and tachycardic 130'-140's with BBB.On NRB mask 100%( 15 LITERS).Dx:SEPSIS,PNA,NSTEMI.H/O CABG,STENTS X 7,AAA,PULMONARY FIBROSIS,COLON CA,BOWEL OBS with colostomy.Respiration even and unlabored.Oriented to room and plan of care explained to patient.Verbalized understanding.Denies pain at this time.Safety measure implemented with call light at bedside,bed in low position,side rails up and exit alarm on.Daughter at bedside.Continue monitoring.
--- NOTE | 2017-12-01 00:33 | NUR ---
Cardizem 25 mg iv administered per order.
[2017-12-01] MEDS: ZOSYN IVPB 3.375 G in IV D5W 50ml IV SCH ×5 (00:37→23:55)
[2017-12-01] MEDS: METOPROLOL TARTRATE 50 MG TABLET PO SCH ×3 (00:40→17:00)
[2017-12-01] MEDS ORDERED: ASPIRIN 81 MG TAB.CHEW PO ONE (01:00)
[2017-12-01] MEDS ORDERED: CLONIDINE HCL 0.1 MG TABLET PO PRN (01:00)
[2017-12-01] MEDS: Magnesium 1GM/D5W 100ML PREMIX 100 ML IV SCH ×2 (01:05→02:13)
[2017-12-01] MEDS: VANCOMYCIN 500 MG in IV D5W 100 ML IV SCH ×2 (01:07→12:39)
[2017-12-01] MEDS: TRAMADOL HCL 50 MG TABLET PO PRN (02:00)
[2017-12-01] MEDS: LORAZEPAM 0.5 MG TABLET PO PRN ×2 (02:06→21:09)
--- NOTE | 2017-12-01 02:30 | NUR ---
Patient complaints of right shoulder pain,very restless and anxious.PRN pain medication and Ativan administered.Continue monitoring.Titrated O2 to simple mask 7L but patient desat to 70's. Placed back to 15L NRB mask.
--- NOTE | 2017-12-01 02:50 | NUR ---
notified of patient status and troponin levels.Orders received and carried out.
[2017-12-01] MEDS ORDERED: HEPARIN INFUSION/D5W 500 ML IV PRN (03:00)
--- NOTE | 2017-12-01 03:15 | NUR ---
Magnesium level 1.6 Replaced with Magnesium 2 GM IV per order.
[2017-12-01] MEDS ORDERED: HEPARIN SODIUM, PORCINE 5000 UNITS/1 ML VIAL ONE (03:21)
[2017-12-01] MEDS ORDERED: HEPARIN SODIUM, PORCINE 5000 UNITS/1 ML VIAL IV ONE (03:30)
--- NOTE | 2017-12-01 03:32 | NUR ---
Heparin gtt started at 1050 units/hr per [facility] protocol after bolus dose.
--- NOTE | 2017-12-01 04:00 | NUR ---
Patient resting at this time.VS stable.Continue monitoring.AM care done.
[2017-12-01 04:57] LABS: CALCIUM, SERUM 8.4 mg/dL (8.5-10.1); CARBON DIOXIDE 21 mmol/L (21-32); CHLORIDE 106 mmol/L (98-107); CREATININE 1.1 mg/dL (0.6-1.3); GLUCOSE 191 mg/dL (74-106); POTASSIUM 3.4 mmol/L (3.5-5.1); SODIUM SERUM 140 mmol/L (136-145); UREA NITROGEN, BLOOD 11 mg/dL (7-18)
[2017-12-01 05:17] LABS: BASOPHILS % (AUTO) 0.2 % (0.0-2.0); HEMATOCRIT 30 % (39-51); HEMOGLOBIN 9.7 g/dL (13.5-17.5); LYMPHOCYTES # (AUTO) 1.3 /CMM (0.8-4.8); LYMPHOCYTES % (AUTO) 8.6 % (20.0-44.0); MEAN CORPUSCULAR HGB CONC 32 g/dl (31.0-36.0); MEAN CORPUSCULAR VOLUME 93 fL (80-96); MONOCYTES # (AUTO) 0.6 /CMM (0.1-1.30); MONOCYTES % (AUTO) 3.8 % (2.0-12.0); NEUTROPHILS # (AUTO) 13.5 /CMM (1.8-8.9); NEUTROPHILS % (AUTO) 87.4 % (43.0-81.0); PLATELET COUNT (AUTO) 485 /CMM (150-450); RDW COEFFICIENT OF VARIATION 13.5 (11.5-15.0); RED BLOOD CELL COUNT(AUTO) 3.24 MIL/uL (4.5-6.0); WHITE BLOOD COUNT (AUTO) 15.5 K/uL (4.3-11.0)
--- NOTE | 2017-12-01 07:15 | NUR ---
Patient very agitated and anxious. SVT 180'S-190'S per monitor.Ativan PRN IV given.Encouraged patient to relax and deep breath.HR down to 117.Report given to AM shift RN for KATIA.
[2017-12-01] MEDS: FUROSEMIDE 40 MG/4 ML VIAL IV SCH ×3 (08:11→16:14)
[2017-12-01] MEDS: POTASSIUM CHLORIDE 20 MEQ TAB.PRT.SR PO SCH ×3 (08:12→10:00)
[2017-12-01 08:25] LABS: ABG OXYGEN SATURATION 88.4 % (92.0-98.5); ABG PCO2 36.4 mmHg (35.0-45.0); ABG PH 7.284 (7.350-7.450); ABG PO2 68.2 mmHg (75.0-100.0); AaDO2 500.1 mmHg; COHb 0.3 % (0.5-1.5); MetHb 0.5 % (0.0-1.5); O2Hb 87.7 % (94.0-97.0); SITE, ABG Right Radial; VENT MODE, BG 15L NRB MASK
[2017-12-01] MEDS: ENOXAPARIN SODIUM 80 MG/0.8 ML DISP.SYRIN SQ SCH ×2 (08:47→21:11)
[2017-12-01] MEDS: CIPROFLOXACIN HCL 500 MG TABLET PO SCH ×2 (09:00→17:00)
[2017-12-01] MEDS ORDERED: CIPROFLOXACIN HCL 250 MG TABLET PO SCH (09:00)
[2017-12-01] MEDS: CLOPIDOGREL BISULFATE 75 MG TABLET PO SCH (09:00)
[2017-12-01] MEDS: CITALOPRAM HYDROBROMIDE 20 MG TABLET PO SCH (09:00)
[2017-12-01] MEDS ORDERED: VALSARTAN 80 MG TABLET PO SCH (09:00)
[2017-12-01] MEDS: PANTOPRAZOLE 40 MG TABLET.DR PO SCH (09:00)
[2017-12-01] MEDS ORDERED: METOPROLOL TARTRATE 50 MG TABLET PO SCH (09:00)
[2017-12-01] MEDS: ASPIRIN 81 MG TAB.CHEW PO SCH (09:00)
[2017-12-01] MEDS ORDERED: LOSARTAN POTASSIUM 50 MG TABLET PO SCH (09:00)
[2017-12-01] MEDS ORDERED: IRBESARTAN (150MG) 150 MG TABLET PO SCH (09:00)
[2017-12-01] MEDS ORDERED: FUROSEMIDE 40 MG TABLET PO SCH (09:00)
--- NOTE | 2017-12-01 09:11 | NUR ---
TRANSCRIPTION SPECIALIST DF PT ABG RESULTS FORWARDED TO MD GARCIA ORDERS TO START PT ON BIPAP. PT RESTLESS, UNCOOPERATIVE, ANXIOUS ATIVAN PRN LAST GIVEN @ 0700 BY PM RN. PT PLACED IN BILATERAL SOFT WRIST RESTRAINTS PT KEEPS REMOVING NON REBREATHER MASK CAUSING DESATURATION. PT ATTEMPTING MULTIPLE TIMES TO GET OUT OF BED, BED ALARM ON, RN WORKSTATION IN CLOSE VIEW OF PT, PT ADMIN LASIX 40 MG IVP PER CARDIOLOGY. PT UNABLE TO PASS BEDSIDE SWALLOW TEST, UNABLE TO ADMIN PO POTASSIUM. ORDER CHANGED TO IVPB KCL. VSS.
--- NOTE | 2017-12-01 09:20 | NUR ---
RT PER DR GARCIA PATIENT PLACED ON BIPAP WITH ORDERED SETTINGS. ALARMS CHECKED + AUDIBLE. Addendum: 12/01/17 at 1441 by JABARI ROBERTS RT Amended: Links added.
[2017-12-01] MEDS: POTASSIUM CL. PREMIX PERIPHER. 50 ML IV SCH ×6 (09:35→22:11)
[2017-12-01 12:14] LABS: ABG BASE EXCESS 0.7 mmol/L; ABG OXYGEN SATURATION 97.9 % (92.0-98.5); ABG PCO2 34.9 mmHg (35.0-45.0); ABG PH 7.459 (7.350-7.450); ABG PO2 142.9 mmHg (75.0-100.0); AaDO2 535.2 mmHg; COHb 0.3 % (0.5-1.5); MetHb 0.6 % (0.0-1.5); SITE, ABG Right Radial; VENT MODE, BG ST 20/10 100%
--- NOTE | 2017-12-01 12:18 | NUR ---
MODELING AGENCY MANAGER DF 2ND ABG RESULTED WITH IMPROVEMENT. MD GARCIA IN UNIT AWARE OF ABG RESULTS. POC REDUCE FIO2 BY 70%, AND CONTINUE BIPAP CARE. PICC LINE PLACED TO RIGHT UPPER EXTREMITY. POTASSIUM INFUSION IVPB DELAYED 2ND POOR IV ACCESS. VSS. NAD NOTED. A/OX3 FOLLOWING COMMANDS. FAMILY AT BEDSIDE UPDATED REGARDING POC.
[2017-12-01 19:09] LABS: CALCIUM, SERUM 8.5 mg/dL (8.5-10.1); CARBON DIOXIDE 28 mmol/L (21-32); CHLORIDE 104 mmol/L (98-107); CREATININE 1.1 mg/dL (0.6-1.3); GLUCOSE 120 mg/dL (74-106); POTASSIUM 3.1 mmol/L (3.5-5.1); SODIUM SERUM 142 mmol/L (136-145); UREA NITROGEN, BLOOD 11 mg/dL (7-18)
--- NOTE | 2017-12-01 19:11 | NUR ---
DRY BOSS DF PT BMP RESULTED POTASSIUM OF 3.1, AWAITING MAGNESIUM LEVELS. VSS. NAD NOTED. PT A/OX4 FOLLOWING COMMANDS. TOLERATING BIPAP. LAB VALUES ENDORSED TO PM JOSSUE RENTERIA. PT WITH 6.5 LITER URINE OUTPUT AND RECEIVED 40 MEQ KCL. FAMILY UPDATED REGARDING POC.
--- NOTE | 2017-12-01 20:00 | NUR ---
LAUNCH COMMANDER [employer]ICE RCD PT ON BIPAP; PT IS EXTREMELY AGITATED ASKING FOR HIS ATIVAN; EXPLAINED TO PT IT HAS BEEN DISCONTINUED. PT REPEATEDLY TRYING TO REMOVE BIPAP. CONTINUE TO MONITOR.
[2017-12-01 20:17] LABS: MAGNESIUM 1.7 mg/dL (1.8-2.4)
--- NOTE | 2017-12-01 20:24 | NUR ---
CENTRIFUGAL CASTING MACHINE TENDER RCD CALL FROM PTS DAUGHTER LUIS; UPDATED WITH PLAN OF CARE. PER DAUGHTER PT NEEDS ATIVAN HE IS VERY ANXIOUS AND CAN NOT BE WITHOUT IT. EXPLAINED TO PT MD DISCONTINUED MEDICATION BUT WAS WAITING FOR PRIMARY MD TO CALL BACK PT IS VERY RESTLESS AND CONTINUES TO REMOVE BIPAP AND ATTEMPTING TO GET OUT OF BED.
--- NOTE | 2017-12-01 20:25 | NUR ---
HEMMER AUTOMATIC CALL PLACED TO DR WHITE RE POTASSIUM 3.1 AND MG 1.7.
--- NOTE | 2017-12-01 20:50 | NUR ---
KILN FURNITURE CASTER S/W DR WHITE W/ORDERS TO CONTINUE ATIVAN. ALSO RECEIVED ORDERS TO REPLACE MAGNESIUM (1.7) AND POTASSIUM (3.1)
[2017-12-01] MEDS ORDERED: Magnesium 1GM/D5W 100ML PREMIX PIGGYBACK IV ONE (21:00)
--- NOTE | 2017-12-01 21:10 | NUR ---
WORSHIP LEADER PER PT REQUEST PT GIVEN ATIVAN PO; PT NOTED TO BE AGITATED AND RESTLESS REPEATEDLY ATTEMPTING TO REMOVE BIPAP; SON AT BEDSIDE PROVIDING SUPPORT. CONTINUE TO MONITOR.
[2017-12-01] MEDS: IV NS 0.9% 250 ML IV PRN (21:20)
--- NOTE | 2017-12-01 22:30 | NUR ---
SENIOR APPLICATIONS ANALYST PT NOTED WITH ELEVATED HR 150-160; PT DENIES CHEST PAIN OR TROUBLE BREATHING. PT REQUESTING MORE ATIVAN; EXPLAINED TO PT HE WOULD ONLY BE RECEIVING ONE DOSE THIS SHIFT. PT ONLY C/O SCDs BURNING HIS LEGS; REMOVED FOR PT COMFORT. SON AT BEDSIDE PROVIDING SUPPORT. NOTIFIED DR WHITE W/NNO. CONTINUE TO MONITOR.
[2017-12-02] VITALS (34 sets, daily range): BP systolic 97–143; BP diastolic 48–83
[2017-12-02] MEDS: VANCOMYCIN 500 MG in IV D5W 100 ML IV SCH ×2 (01:40→12:00)
[2017-12-02] MEDS: TRAMADOL HCL 50 MG TABLET PO PRN (03:05)
--- NOTE | 2017-12-02 03:05 | NUR ---
EARTH SCIENCE PROFESSOR PT REQUESTED PAIN MEDICATION FOR HEADACHE; ULTRAM GIVEN. CONTINUE TO MONITOR.
[2017-12-02 04:40] LABS: BASOPHILS # (AUTO) 0.1 /CMM (0.0-0.2); BASOPHILS % (AUTO) 0.7 % (0.0-2.0); EOSINOPHILS % (AUTO) 0.4 % (0.0-6.0); HEMATOCRIT 29 % (39-51); HEMOGLOBIN 9.5 g/dL (13.5-17.5); LYMPHOCYTES % (AUTO) 8.3 % (20.0-44.0); MEAN CORPUSCULAR HGB CONC 33 g/dl (31.0-36.0); MEAN CORPUSCULAR VOLUME 93 fL (80-96); MONOCYTES # (AUTO) 0.3 /CMM (0.1-1.30); MONOCYTES % (AUTO) 2.4 % (2.0-12.0); NEUTROPHILS # (AUTO) 10.4 /CMM (1.8-8.9); NEUTROPHILS % (AUTO) 88.2 % (43.0-81.0); PLATELET COUNT (AUTO) 417 /CMM (150-450); RDW COEFFICIENT OF VARIATION 13.8 (11.5-15.0); RED BLOOD CELL COUNT(AUTO) 3.12 MIL/uL (4.5-6.0); WHITE BLOOD COUNT (AUTO) 11.8 K/uL (4.3-11.0)
[2017-12-02 04:55] LABS: ALANINE AMINOTRANSFERASE 79 U/L (12-78); ALBUMIN 2.2 g/dL (3.4-5.0); ALKALINE PHOSPHATASE 85 U/L (46-116); ASPARTATE AMINOTRANSFERASE 106 U/L (15-37); CALCIUM, SERUM 8.4 mg/dL (8.5-10.1); CARBON DIOXIDE 29 mmol/L (21-32); CHLORIDE 103 mmol/L (98-107); GLUCOSE 116 mg/dL (74-106); SODIUM SERUM 141 mmol/L (136-145); TOTAL PROTEIN, SERUM 6.3 g/dL (6.4-8.2); UREA NITROGEN, BLOOD 12 mg/dL (7-18)
[2017-12-02 04:58] LABS: POTASSIUM 2.8 mmol/L (3.5-5.1)
[2017-12-02 05:04] LABS: TROPONIN I 6.603 ng/mL (0.00-0.056)
[2017-12-02] MEDS: ZOSYN IVPB 3.375 G in IV D5W 50ml IV SCH ×4 (05:15→23:55)
--- NOTE | 2017-12-02 07:15 | NUR ---
RECEIVED CARE OF PATIENT FROM JOSSUE RENTERIA. PATIENT CURRENTLY ON BIPAP PER SETTINGS ORDERED AND AT 40% PER REPORT ON AND OFF COMPLIANT. PATIENT AWAKE ORIENTED X4 AND RESTLESS. PRN TRAMADOL AND ATIVAN BEING GIVEN PER EMR. PATIENT NSR AT THIS TIME. 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 LEWIS CATH IN PLACE DRAINING TO GRAVITY. PATIENT INDEPENDENT MOVEMENT IN BED. REFUSING SCD PUMPS AT THIS TIME; EDUCATED. NPO EXCEPT MEDS WITH NO DIFFICULTY WITH SWALLOWING PER RN. JUAN ANTONIO PICC C/D/I/P AND GOOD BLOOD RETURN. ALL NEEDS ASSESSED AND MET. SAFETY, SKIN, ASPIRATION PRECAUTIONS IN PLACE. WILL ROUND
--- NOTE | 2017-12-02 07:32 | NUR ---
RT NOTE RECEIVED PT ON BIPAP. SETTINGS PRESCRIBED. ALARMS SET PER PROTOCOL AND AUDIBLE. BIPAP PLUGGED IN TO RED OUTLET. AMBU BAG AT BED SIDE. PT AWAKE AND ALERT. NO DISTRESS NOTED AT MOMENT. Addendum: 12/02/17 at 0733 by OMID SIMS RT Amended: Links added.
[2017-12-02] MEDS: ENOXAPARIN SODIUM 80 MG/0.8 ML DISP.SYRIN SQ SCH ×2 (08:01→20:48)
[2017-12-02 08:43] LABS: ABG BASE EXCESS 5.3 mmol/L; ABG OXYGEN SATURATION 97.2 % (92.0-98.5); ABG PCO2 40.2 mmHg (35.0-45.0); ABG PH 7.479 (7.350-7.450); ABG PO2 108.2 mmHg (75.0-100.0); AaDO2 130.8 mmHg; COHb 0.3 % (0.5-1.5); MetHb 0.7 % (0.0-1.5); O2Hb 96.2 % (94.0-97.0); SITE, ABG Right Radial; VENT MODE, BG ST 15/8 40% RR 14
[2017-12-02] MEDS: ASPIRIN 81 MG TAB.CHEW PO SCH (08:57)
[2017-12-02] MEDS: PANTOPRAZOLE 40 MG TABLET.DR PO SCH (08:57)
[2017-12-02] MEDS: METOPROLOL TARTRATE 50 MG TABLET PO SCH ×2 (08:57→16:08)
[2017-12-02] MEDS: CLOPIDOGREL BISULFATE 75 MG TABLET PO SCH (08:57)
[2017-12-02] MEDS: CITALOPRAM HYDROBROMIDE 20 MG TABLET PO SCH (08:57)
[2017-12-02] MEDS: CIPROFLOXACIN HCL 500 MG TABLET PO SCH ×2 (08:57→17:34)
--- NOTE | 2017-12-02 08:58 | NUR ---
DR PAK AT BEDSIDE. MD UPDATED ON PATIENT CONDITION AND FAMILY AT BEDSIDE. MD AWARE PATIENT BECOMES TACHYCARDIC WITH ACTIVITY BUT RESOLVES AT REST. PATIENT TOLERATING NASAL CANNULA AT THIS TIME 100%. RT AT BEDSIDE FOR F/U ABG
[2017-12-02] MEDS ORDERED: POTASSIUM CHLORIDE 20 MEQ TAB.PRT.SR PO SCH (09:00)
[2017-12-02 09:06] LABS: ABG BASE EXCESS 5.5 mmol/L; ABG OXYGEN SATURATION 97.1 % (92.0-98.5); ABG PCO2 38.5 mmHg (35.0-45.0); ABG PH 7.496 (7.350-7.450); ABG PO2 107.1 mmHg (75.0-100.0); AaDO2 133.8 mmHg; COHb 0.3 % (0.5-1.5); MetHb 0.9 % (0.0-1.5); O2Hb 95.9 % (94.0-97.0); SITE, ABG Right Radial; VENT MODE, BG NC 5L
--- NOTE | 2017-12-02 09:15 | NUR ---
PER DR PASHA GARCIA FOR PATIENT TO RESUME DIET. ORDERED CARDIAC DIET. PATIENT REFUSING BREAKFAST. ORDERED FOR LUNCH. DR GARCIA SHOWN POST 1HR BIPAP AND NO NEW ORDERS. CONTINUE WITH NASAL CANNULA
--- NOTE | 2017-12-02 10:16 | NUR ---
PATIENT HAVING SOME DIFFICULTY SWALLOWING KDUR PILL. PER DR CHRISTOPHER GARCIA TO DC AND ORDER 20MEQ POTASSIUM IVPB AND GIVE POTASSIUM PHOSPHATE IV 15MMOL X1. PATIENT REQUESTING TYLENOL FOR HEADACHE. PER MD GARCIA TO ORDER TYLENOL PO Q6H PRN 650MG FOR MILD PAIN/ HEADACHE
[2017-12-02] MEDS: MUPIROCIN OINT 2% 22 GM TUBE SCH ×2 (10:26→20:48)
[2017-12-02] MEDS: ACETAMINOPHEN 325 MG TABLET PO PRN ×2 (10:26→21:39)
[2017-12-02] MEDS ORDERED: POTASSIUM PHOSPHATE MM 15 MMOL in IV D5W 250 ML IV SCH (10:30)
[2017-12-02] MEDS: POTASSIUM CL. PREMIX PERIPHER. 50 ML IV SCH ×2 (11:18→12:23)
[2017-12-02] MEDS: Potassium Phosphate meq 11 MEQ in IV D5W 100 ML IV SCH ×2 (13:48→16:23)
--- NOTE | 2017-12-02 19:13 | NUR ---
ALL DUE MEDS GIVEN AND ALL NEEDS MET. PATIENT TOLERATING AND STABLE ON NASAL CANNULA NO SOB NOTED. SKIN SAFETY AND ASPIRATION, AND ISOLATION PRECAUTIONS MONITORED THROUGHOUT DAY. CARE ENDORSED TO RN FOR KATIA.
--- NOTE | 2017-12-02 20:00 | NUR ---
CARE TECHNICIAN - NOTES - RECEIVED PATIENT AWAKE ORIENTED X4 AND ON 3L NC. PATIENT NSR AT THIS TIME. 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 LEWIS CATH IN PLACE DRAINING TO GRAVITY. PATIENT INDEPENDENT MOVEMENT IN BED. REFUSING SCD PUMPS AT THIS TIME; EDUCATED. NPO EXCEPT MEDS WITH NO DIFFICULTY WITH SWALLOWING PER RN. JUAN ANTONIO PICC C/D/I/P AND GOOD BLOOD RETURN. ALL NEEDS ASSESSED AND MET. SAFETY, SKIN, ASPIRATION PRECAUTIONS IN PLACE. WILL ROUND
[2017-12-02] MEDS: LORAZEPAM 0.5 MG TABLET PO PRN (23:16)
[2017-12-03] VITALS (26 sets, daily range): BP systolic 95–158; BP diastolic 48–83
[2017-12-03] MEDS: VANCOMYCIN 500 MG in IV D5W 100 ML IV SCH ×2 (01:06→12:28)
[2017-12-03 04:41] LABS: BASOPHILS % (AUTO) 0.2 % (0.0-2.0); EOSINOPHILS % (AUTO) 2.3 % (0.0-6.0); HEMATOCRIT 29 % (39-51); HEMOGLOBIN 9.3 g/dL (13.5-17.5); LYMPHOCYTES # (AUTO) 0.9 /CMM (0.8-4.8); LYMPHOCYTES % (AUTO) 8.6 % (20.0-44.0); MEAN CORPUSCULAR HGB CONC 33 g/dl (31.0-36.0); MEAN CORPUSCULAR VOLUME 93 fL (80-96); MONOCYTES # (AUTO) 0.2 /CMM (0.1-1.30); MONOCYTES % (AUTO) 2.1 % (2.0-12.0); NEUTROPHILS # (AUTO) 9.4 /CMM (1.8-8.9); NEUTROPHILS % (AUTO) 86.8 % (43.0-81.0); PLATELET COUNT (AUTO) 397 /CMM (150-450); RDW COEFFICIENT OF VARIATION 13.6 (11.5-15.0); RED BLOOD CELL COUNT(AUTO) 3.06 MIL/uL (4.5-6.0); WHITE BLOOD COUNT (AUTO) 10.9 K/uL (4.3-11.0)
[2017-12-03] MEDS: TRAMADOL HCL 50 MG TABLET PO PRN (04:44)
[2017-12-03 04:59] LABS: ALANINE AMINOTRANSFERASE 52 U/L (12-78); ALBUMIN 2.1 g/dL (3.4-5.0); ALKALINE PHOSPHATASE 92 U/L (46-116); ASPARTATE AMINOTRANSFERASE 35 U/L (15-37); BILIRUBIN,TOTAL 0.8 mg/dL (0.2-1.0); CALCIUM, SERUM 8.3 mg/dL (8.5-10.1); CARBON DIOXIDE 30 mmol/L (21-32); CHLORIDE 103 mmol/L (98-107); CREATININE 0.9 mg/dL (0.6-1.3); GLUCOSE 104 mg/dL (74-106); MAGNESIUM 1.9 mg/dL (1.8-2.4); PHOSPHORUS 2.7 mg/dL (2.5-4.9); POTASSIUM 3.1 mmol/L (3.5-5.1); SODIUM SERUM 139 mmol/L (136-145); UREA NITROGEN, BLOOD 16 mg/dL (7-18)
[2017-12-03] MEDS: ZOSYN IVPB 3.375 G in IV D5W 50ml IV SCH ×4 (05:50→23:34)
[2017-12-03] MEDS: IV NS 0.9% 250 ML IV PRN (06:39)
--- NOTE | 2017-12-03 07:00 | NUR ---
RECEIVED PATIENT SLEEPING AWAKE TO LIGHT TOUCH. A/OX4 IN NO ACUTE DISTRESS. NO NOTED SOB OR DIFFICULTY BREATHING. PULSE OX ON 5LPM NC AT THIS TIME 83%, TROUBLE SHOOTED AND DEEP BREATHING COMPLETED AND OXYGEN SAT STILL LOW 80%. PATIENT PLACED ON 10L SIMPLE MASK AND SATURATING 90-92% AT REST. LEWIS CATH IN PLACE DRAINING TO GRAVITY. TELE NSR. ALL NEEDS IN REACH. HOB ELEVATED. SKIN SAFETY AND SKIN PRECAUTIONS IN PLACE. ISOLATION PRECAUTIONS IN PLACE.
[2017-12-03] MEDS: PANTOPRAZOLE 40 MG TABLET.DR PO SCH (08:21)
[2017-12-03] MEDS: CLOPIDOGREL BISULFATE 75 MG TABLET PO SCH (08:21)
[2017-12-03] MEDS: ASPIRIN 81 MG TAB.CHEW PO SCH (08:21)
[2017-12-03] MEDS: METOPROLOL TARTRATE 50 MG TABLET PO SCH ×2 (08:21→16:38)
[2017-12-03] MEDS: CITALOPRAM HYDROBROMIDE 20 MG TABLET PO SCH (08:21)
[2017-12-03] MEDS: CIPROFLOXACIN HCL 500 MG TABLET PO SCH (08:23)
[2017-12-03] MEDS: ENOXAPARIN SODIUM 80 MG/0.8 ML DISP.SYRIN SQ SCH ×2 (08:33→20:58)
--- NOTE | 2017-12-03 08:57 | NUR ---
PATIENT OXYGEN NEEDS ARE LABILE. AT REST PATIENT TOLERATING NASAL CANNULA 6LPM AND SATURATING AT 94%. WITH ANY ACTIVITY/ MOVEMENT IN BED PATIENT DESATURATES TO LOW 80'S% WHILE ON NASAL CANNULA. PATIENT PLACED ON SIMPLE FACE MASK AT 10LPM AND OSYGEN INCREASES TO 97% WITHIN 10 MINUTES. PATIENT TOLERATING AT THIS TIME 6LPM SFM AT REST 98%
--- NOTE | 2017-12-03 09:03 | NUR ---
DR GARCIA AT BEDSIDE. PER MD GIVE 40MEQ OF POTASSIUM CHLORIDE IVPB. ONCE 20MEQ COMPLETED START PATIENT ON BUMEX GTT 4MG OVER 4 HOURS. PATIENT PLACED ON NASAL CANNULA 5LPM AND TOLEARATING WELL 95%
[2017-12-03] MEDS: POTASSIUM CL. PREMIX PERIPHER. 50 ML IV SCH ×4 (09:14→12:28)
[2017-12-03] MEDS: MUPIROCIN OINT 2% 22 GM TUBE SCH ×2 (09:21→20:59)
[2017-12-03] MEDS ORDERED: BUMETANIDE INJ 4 MG in IV NS 0.9% 24 ML IV ONE (10:00)
[2017-12-03] MEDS: POTASSIUM CHLORIDE 20 MEQ TAB.PRT.SR PO SCH ×2 (10:20→11:28)
[2017-12-03] MEDS: LORAZEPAM 0.5 MG TABLET PO PRN ×2 (12:41→21:42)
[2017-12-03] MEDS: FUROSEMIDE 40 MG/4 ML VIAL IV SCH ×3 (15:10→21:45)
[2017-12-03] MEDS: SPIRONOLACTONE 25 MG TABLET PO SCH (16:37)
[2017-12-03 16:51] LABS: CALCIUM, SERUM 8.7 mg/dL (8.5-10.1); CARBON DIOXIDE 30 mmol/L (21-32); CHLORIDE 98 mmol/L (98-107); CREATININE 1.1 mg/dL (0.6-1.3); GLUCOSE 127 mg/dL (74-106); POTASSIUM 3.7 mmol/L (3.5-5.1); SODIUM SERUM 137 mmol/L (136-145); UREA NITROGEN, BLOOD 15 mg/dL (7-18)
[2017-12-03] MEDS: ACETAMINOPHEN 325 MG TABLET PO PRN ×2 (17:07→20:57)
--- NOTE | 2017-12-03 19:11 | NUR ---
PATIENT STABLE. ALL DUE MEDS GIVEN AND ALL NEEDS MET. PATIENT STABLE ON 4LPM NC 100% AT THIS TIME. SKIN SAFETY, ASPIRATION AND ISOLATION PRECAUTIONS MONITORED THROUGHOUT DAY. ALL NEEDS MET AND ASSESSED. PATIENT CARE ENDORSED TO RN FOR KATIA.
--- NOTE | 2017-12-03 20:00 | NUR ---
SENIOR DATA INTEGRATION DEVELOPER - NOTES - RECEIVED PATIENT AWAKE ORIENTED X4 AND ON 4L NC. PATIENT NSR AT THIS TIME. 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 LEWIS CATH IN PLACE DRAINING TO GRAVITY. PATIENT INDEPENDENT MOVEMENT IN BED. JUAN ANTONIO PICC C/D/I/P AND GOOD BLOOD RETURN. ALL NEEDS ASSESSED AND MET. SAFETY, SKIN, ASPIRATION PRECAUTIONS IN PLACE. WILL ROUND
[2017-12-04] VITALS (21 sets, daily range): BP systolic 102–141; BP diastolic 51–78
[2017-12-04] MEDS: VANCOMYCIN 0.75 GM in IV D5W 250 ML IV SCH ×2 (01:05→13:50)
[2017-12-04 04:48] LABS: BASOPHILS % (AUTO) 0.4 % (0.0-2.0); HEMATOCRIT 34 % (39-51); HEMOGLOBIN 10.8 g/dL (13.5-17.5); LYMPHOCYTES # (AUTO) 1.5 /CMM (0.8-4.8); LYMPHOCYTES % (AUTO) 12.3 % (20.0-44.0); MEAN CORPUSCULAR HGB CONC 32 g/dl (31.0-36.0); MEAN CORPUSCULAR VOLUME 93 fL (80-96); MONOCYTES # (AUTO) 0.3 /CMM (0.1-1.30); MONOCYTES % (AUTO) 2.4 % (2.0-12.0); NEUTROPHILS # (AUTO) 9.7 /CMM (1.8-8.9); NEUTROPHILS % (AUTO) 81.9 % (43.0-81.0); PLATELET COUNT (AUTO) 466 /CMM (150-450); RDW COEFFICIENT OF VARIATION 13.1 (11.5-15.0); RED BLOOD CELL COUNT(AUTO) 3.62 MIL/uL (4.5-6.0); WHITE BLOOD COUNT (AUTO) 11.9 K/uL (4.3-11.0)
[2017-12-04 05:04] LABS: CARBON DIOXIDE 34 mmol/L (21-32); CHLORIDE 97 mmol/L (98-107); GLUCOSE 112 mg/dL (74-106); MAGNESIUM 1.9 mg/dL (1.8-2.4); PHOSPHORUS 3.3 mg/dL (2.5-4.9); POTASSIUM 3.1 mmol/L (3.5-5.1); SODIUM SERUM 138 mmol/L (136-145); UREA NITROGEN, BLOOD 18 mg/dL (7-18)
[2017-12-04] MEDS: ZOSYN IVPB 3.375 G in IV D5W 50ml IV SCH ×4 (05:24→23:56)
[2017-12-04] MEDS: ACETAMINOPHEN 325 MG TABLET PO PRN ×3 (05:24→20:02)
--- NOTE | 2017-12-04 07:15 | NUR ---
QA TECH NOTES RECEIVED PATIENT AOX4 , NOT IN ACUTE DISTRESS , RESPIRATIONS EVEN AND UNLABORED WITH SPO2 OF 100% VIA 4LPM NC , DENIES SOB AND DISCOMFORT AT THIS TIME , SR 75 ON BEDSIDE MONITOR , LLQ COLOSTOMY DRAINING WITH SOFT FORMED BROWN STOOL , FC DRAINING VIA GRAVITY WITH CLEAR YELLOW URINE , JUAN ANTONIO PICC LINE WITH NS @ TKO ,ALL NEEDS ATTENDED ,BED ON LOW AND LOCKED POSITION , SIDE RAILS X2, CALL LIGHT WITHIN REACH , HOB @ 35 , WILL CONTINUE TO MONITOR.
[2017-12-04] MEDS: MUPIROCIN OINT 2% 22 GM TUBE SCH ×2 (08:12→20:02)
[2017-12-04] MEDS: SPIRONOLACTONE 25 MG TABLET PO SCH (08:12)
[2017-12-04] MEDS: FUROSEMIDE 40 MG/4 ML VIAL IV SCH ×2 (08:12→12:25)
[2017-12-04] MEDS: CITALOPRAM HYDROBROMIDE 20 MG TABLET PO SCH (08:12)
[2017-12-04] MEDS: POTASSIUM CHLORIDE 20 MEQ TAB.PRT.SR PO SCH ×3 (08:12→10:41)
[2017-12-04] MEDS: PANTOPRAZOLE 40 MG TABLET.DR PO SCH (08:12)
[2017-12-04] MEDS: ASPIRIN 81 MG TAB.CHEW PO SCH (08:13)
[2017-12-04] MEDS: METOPROLOL TARTRATE 50 MG TABLET PO SCH ×2 (08:16→17:23)
[2017-12-04] MEDS: CLOPIDOGREL BISULFATE 75 MG TABLET PO SCH (08:16)
[2017-12-04] MEDS: ENOXAPARIN SODIUM 40 MG/0.4 ML DISP.SYRIN SQ SCH (08:18)
--- NOTE | 2017-12-04 09:30 | NUR ---
AUTOMATIC PINSETTER ADJUSTER NOTES SEEN AND EVALUATED BY DR GARCIA ,DISCUSSED LABS , CHEST XRAY , ON 4LPM NC SPO2 OF 95-100% , ON LASIX 40MG X2 DOSES , OFF BIPAP 9 @ 0800 , MD AWARE .
--- NOTE | 2017-12-04 12:30 | NUR ---
SENIOR MEDIA PLANNER NOTES SPOKE WITH DR GRAF , DISCUSSED LABS , CHEST XRAY , V/S STABLE , PT COMPLAINING OF NAUSEA , PER MD START PT ON ZOFRAN PRN IVP , ORDER CARRIED OUT .
[2017-12-04] MEDS: ONDANSETRON HCL/PF 4 MG/2 ML VIAL IV PRN ×2 (14:38→21:21)
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
[2017-12-04] MEDS: ENSURE ENLIVE CHOC 237 ML CAN PO SCH (17:21)
--- NOTE | 2017-12-04 17:57 | NUR ---
CONCRETE PANEL INSTALLER NOTES REPORT GIVEN TO JEN FOR CONTINUITY OF CARE . ALL QUESTIONS ANSWERED .
--- NOTE | 2017-12-04 18:14 | NUR ---
MATERIAL CONTROL SPECIALIST NOTES CALLED DAUGHTER ( LUIS) NOTIFIED THAT PT WILL BE TRANSFERED TO ROOM 116-1 , DAUGHTER AWARE .
--- NOTE | 2017-12-04 18:44 | NUR ---
ROAST MASTER NOTES TRANSFERRED PT TO ROOM 116-1 VIA ACLS PROTOCOL , PT STABLE AT THIS TIME , NO CHANGE OF CONDITION NOTED , STEPHANE CHECKED BELONGING LISTED , HANNAH RN AT BEDSIDE .
--- NOTE | 2017-12-04 18:47 | NUR ---
FARM BOSS NOTES RECEIVED PATIENT FROM ICU VIA GUERNRY FROM FARZAD MARCUM. PATIENT STABLE AWAKE AND ALERT PLEASANT. VITALS OBTAINED B/P 124/67 TEMP 97.6 RR 23 ON 3 LTRS N/C HR 73. ABLE TO MAKE NEEDS KNOWN AND ALL MET. ORIENTED TO ROOM CALL LIGHT WITHIN REACH.
--- NOTE | 2017-12-04 19:27 | NUR ---
PSYCHIATRIC MENTAL HEALTH NURSE CLOSING NOTES PATIENT COMFORTABLE IN BED NO C/O PAIN OR RESPIRATORY DISTRESS. LEWIS CATH PATENT AND CLEAR URINE BAG TO GRAVITY. COLOSTOMY CLEAN SMALL AMOUNT OF STOOL. VITAL SIGNS STABLE ALL NEEDS MET CALL LIGHT WITHIN REACH .
--- NOTE | 2017-12-04 20:29 | NUR ---
BENDER MACHINE OPERATOR OPENING NOTES RECEIVED REPORT FROM AM RN. PATIENT A/A/O X3, ABLE TO MAKE SOME NEEDS KNOWN & STATE PAIN. BREATHING EVEN & UNLABORED, TOLERATING O2 @ 3LPM VIA NC. ON TELE W/ SINUS RHYTHM W/ PVC, HR 90. DENIES ANY SOB OR DIFFICULTY BREATHING. RIGHT UPPER ARM PICC LINE INTACT & PATENT W/ DRESSING CDI, SALINE LOCKED. DENIES ANY PAIN OR DISCOMFORT @ THIS TIME. SAFETY MEASURES W/ CALL LIGHT WITHIN REACH. INSTRUCTED TO CALL FOR ASSISTANCE. WILL CONTINUE TO MONITOR.
[2017-12-04] MEDS ORDERED: ZOLPIDEM TARTRATE 5 MG TABLET PO ONE (21:30)
[2017-12-05] VITALS (7 sets, daily range): BP systolic 112–148; BP diastolic 60–82
[2017-12-05] MEDS: VANCOMYCIN 0.75 GM in IV D5W 250 ML IV SCH ×2 (02:04→13:06)
[2017-12-05] MEDS: ZOSYN IVPB 3.375 G in IV D5W 50ml IV SCH ×3 (05:46→17:54)
[2017-12-05 06:14] LABS: ALANINE AMINOTRANSFERASE 39 U/L (12-78); ALBUMIN 2.4 g/dL (3.4-5.0); ALKALINE PHOSPHATASE 162 U/L (46-116); ASPARTATE AMINOTRANSFERASE 28 U/L (15-37); BILIRUBIN,TOTAL 0.6 mg/dL (0.2-1.0); CALCIUM, SERUM 9.1 mg/dL (8.5-10.1); CARBON DIOXIDE 30 mmol/L (21-32); CHLORIDE 97 mmol/L (98-107); GLUCOSE 122 mg/dL (74-106); MAGNESIUM 1.9 mg/dL (1.8-2.4); POTASSIUM 3.6 mmol/L (3.5-5.1); SODIUM SERUM 137 mmol/L (136-145); TOTAL PROTEIN, SERUM 7.3 g/dL (6.4-8.2); UREA NITROGEN, BLOOD 25 mg/dL (7-18)
--- NOTE | 2017-12-05 07:34 | NUR ---
CRIMINAL JUSTICE INSTRUCTOR OPENING NOTES RECEIVED PATIENT REPORT FROM [facility] NURSE. PATIENT ALERT AND ORIENTED X4. NO SIGNS OR SYMPTOMS OF RESPIRATORY DISTRESS ON 3LTRS O2 VIA NASAL CANNULA. NO COMPLAINTS OF ACUTE PAIN. LEWIS CATH DRAINING CLEAR YELLOW URINE COLOSTOMY BAG CLEAN . BED IN LOW POSITION CALL LIGHT WITHIN REACH
[2017-12-05] MEDS: ASPIRIN 81 MG TAB.CHEW PO SCH (08:45)
[2017-12-05] MEDS: MULTIVITAMINS,THERAGRAN 1 UDTAB TABLET PO SCH (08:45)
[2017-12-05] MEDS: PANTOPRAZOLE 40 MG TABLET.DR PO SCH (08:46)
[2017-12-05] MEDS: CLOPIDOGREL BISULFATE 75 MG TABLET PO SCH (08:46)
[2017-12-05] MEDS: SPIRONOLACTONE 25 MG TABLET PO SCH (08:46)
[2017-12-05] MEDS: METOPROLOL TARTRATE 50 MG TABLET PO SCH ×2 (08:46→17:14)
[2017-12-05] MEDS: CITALOPRAM HYDROBROMIDE 20 MG TABLET PO SCH (08:47)
[2017-12-05] MEDS: ENOXAPARIN SODIUM 40 MG/0.4 ML DISP.SYRIN SQ SCH (08:48)
[2017-12-05] MEDS: ENSURE ENLIVE CHOC 237 ML CAN PO SCH ×3 (08:53→17:15)
[2017-12-05] MEDS: MUPIROCIN OINT 2% 22 GM TUBE SCH ×2 (09:11→21:07)
[2017-12-05] MEDS: ACETAMINOPHEN 325 MG TABLET PO PRN (11:44)
--- NOTE | 2017-12-05 19:30 | NUR ---
RN NOTE; RECEIVED PT IN BED AWAKE AND ALERT. BREATHING EVENLY. NO SOB. NAD. SKIN WARM AND DRY, SR ON TELE MONITOR, DENIED ANY PAIN OR DISCOMFORT AT THIS TIME. COLOSTOMY BAG IN PLACE WITH LOOSE BROWN STOOL . NEEDS ATTENDED. BED LOW LOCKED. CALL LIGHT WITHIN REACH. WILL CONT TO MONITOR ,
--- NOTE | 2017-12-05 19:31 | NUR ---
REAL ESTATE COORDINATOR CLOSING NOTES PATIENT COMFORTABLE IN BED NO C/O PAIN OR RESPIRATORY DISTRESS. LEWIS CATH PATENT AND CLEAR URINE BAG TO GRAVITY. COLOSTOMY CLEAN SMALL AMOUNT OF STOOL. VITAL SIGNS STABLE ALL NEEDS MET CALL LIGHT WITHIN REACH . Addendum: 12/05/17 at 1933 by HANNAH OCASIO RN REAL ESTATE COORDINATOR CLOSING NOTES PATIENT COMFORTABLE IN BED NO C/O PAIN OR RESPIRATORY DISTRESS. URINAL BY BEDSIDE. COLOSTOMY CHANGED @ 1800 VITAL SIGNS STABLE ALL NEEDS MET CALL LIGHT WITHIN REACH .
[2017-12-05] MEDS: CHOLESTYRAMINE/ASPARTAME 4 G/PKT PACKET PO SCH (20:52)
[2017-12-05] MEDS: ZOLPIDEM TARTRATE 5 MG TABLET PO PRN (21:50)
--- NOTE | 2017-12-05 21:50 | NUR ---
IRVINIEN GIVEN ORDERED PER PT'S REQUEST FOR INSOMNIA. WILL CONT TO MONITOR,
[2017-12-06] VITALS: BP 123/71
[2017-12-06] MEDS: ZOSYN IVPB 3.375 G in IV D5W 50ml IV SCH ×5 (00:11→23:24)
[2017-12-06] MEDS: ACETAMINOPHEN 325 MG TABLET PO PRN ×2 (03:46→21:44)
--- NOTE | 2017-12-06 03:46 | NUR ---
TYLENOL GIVEN ORDERED PER PT'S REQUEST FOR C/O LOWER BACK PAIN. PT WAS ASSISTED WITH REPOSITIONING. WILL CONT TO MONITOR,
[2017-12-06 04:00] VITALS: BP 121/62
[2017-12-06] MEDS: VANCOMYCIN 0.75 GM in IV NS 0.9% 250 ML IV SCH (06:08)
--- NOTE | 2017-12-06 06:35 | NUR ---
PT IN BED SLEEPING. AROUSES EASILY. BREATHING EVENLY. NO SOB. NO ACUTE EVENT DURING THE NIGHT. TYLENOL GIVEN FOR C/O PAIN: EFFECTIVE. NEEDS ATTENDED. ASSISTED W/ ADLS . CALL LIGHT WITHIN REACH. WILL CONT TO MONITOR AND WILL ENDORSE TO AM SHIFT FOR KATIA.
[2017-12-06 08:00] VITALS: BP 122/59
[2017-12-06] MEDS: ENSURE ENLIVE CHOC 237 ML CAN PO SCH ×3 (08:00→17:40)
[2017-12-06 08:47] LABS: CALCIUM, SERUM 9.2 mg/dL (8.5-10.1); CARBON DIOXIDE 31 mmol/L (21-32); CHLORIDE 98 mmol/L (98-107); CREATININE 1.1 mg/dL (0.6-1.3); GLUCOSE 160 mg/dL (74-106); POTASSIUM 3.3 mmol/L (3.5-5.1); SODIUM SERUM 137 mmol/L (136-145); UREA NITROGEN, BLOOD 23 mg/dL (7-18)
[2017-12-06] MEDS: MUPIROCIN OINT 2% 22 GM TUBE SCH ×2 (09:00→21:53)
[2017-12-06] MEDS: CLOPIDOGREL BISULFATE 75 MG TABLET PO SCH (09:18)
[2017-12-06] MEDS: MULTIVITAMINS,THERAGRAN 1 UDTAB TABLET PO SCH (09:19)
[2017-12-06] MEDS: CITALOPRAM HYDROBROMIDE 20 MG TABLET PO SCH (09:19)
[2017-12-06] MEDS: ASPIRIN 81 MG TAB.CHEW PO SCH (09:19)
[2017-12-06] MEDS: SPIRONOLACTONE 25 MG TABLET PO SCH (09:19)
[2017-12-06] MEDS: CHOLESTYRAMINE/ASPARTAME 4 G/PKT PACKET PO SCH ×2 (09:20→21:44)
[2017-12-06] MEDS: METOPROLOL TARTRATE 50 MG TABLET PO SCH ×2 (09:20→17:40)
[2017-12-06] MEDS: ENOXAPARIN SODIUM 40 MG/0.4 ML DISP.SYRIN SQ SCH (09:22)
[2017-12-06] MEDS: PANTOPRAZOLE 40 MG TABLET.DR PO SCH (09:24)
[2017-12-06 12:00] VITALS: BP 121/62
[2017-12-06] MEDS: POTASSIUM CHLORIDE 20 MEQ TAB.PRT.SR PO SCH (12:01)
[2017-12-06] MEDS: FUROSEMIDE 40 MG TABLET PO SCH (12:01)
[2017-12-06 16:00] VITALS: BP 118/61
[2017-12-06 16:45] LABS: CALCIUM, SERUM 9.2 mg/dL (8.5-10.1); CARBON DIOXIDE 30 mmol/L (21-32); CHLORIDE 99 mmol/L (98-107); GLUCOSE 131 mg/dL (74-106); MAGNESIUM 2.2 mg/dL (1.8-2.4); PHOSPHORUS 3.3 mg/dL (2.5-4.9); POTASSIUM 3.8 mmol/L (3.5-5.1); SODIUM SERUM 138 mmol/L (136-145); UREA NITROGEN, BLOOD 25 mg/dL (7-18)
[2017-12-06 16:58] LABS: BASOPHILS % (AUTO) 0.2 % (0.0-2.0); EOSINOPHILS % (AUTO) 4.4 % (0.0-6.0); HEMATOCRIT 32 % (39-51); HEMOGLOBIN 10.8 g/dL (13.5-17.5); LYMPHOCYTES # (AUTO) 1.2 /CMM (0.8-4.8); LYMPHOCYTES % (AUTO) 15.9 % (20.0-44.0); MEAN CORPUSCULAR HGB CONC 34 g/dl (31.0-36.0); MEAN CORPUSCULAR VOLUME 90 fL (80-96); MONOCYTES # (AUTO) 0.4 /CMM (0.1-1.30); MONOCYTES % (AUTO) 5.2 % (2.0-12.0); NEUTROPHILS # (AUTO) 5.7 /CMM (1.8-8.9); NEUTROPHILS % (AUTO) 74.3 % (43.0-81.0); PLATELET COUNT (AUTO) 447 /CMM (150-450); RDW COEFFICIENT OF VARIATION 12.6 (11.5-15.0); RED BLOOD CELL COUNT(AUTO) 3.55 MIL/uL (4.5-6.0); WHITE BLOOD COUNT (AUTO) 7.6 K/uL (4.3-11.0)
[2017-12-06] MEDS ORDERED: PANT40TA2 PO (17:54)
[2017-12-06] MEDS ORDERED: MUPI22OI7 (17:54)
[2017-12-06] MEDS ORDERED: SPIR25TA PO (17:54)
[2017-12-06] MEDS ORDERED: CHOL4PAC4 PO (17:54)
[2017-12-06] MEDS ORDERED: PIPE3.379 IV (17:54)
[2017-12-06] MEDS ORDERED: VANC1PLA9 IV (17:54)
[2017-12-06] MEDS ORDERED: ENOX40DI SQ (17:54)
--- NOTE | 2017-12-06 19:30 | NUR ---
FUNERAL SERVICE LICENSEE NOTES: RECEIVED PT ON BED AWAKE AND ALERT, FAMILY MEMBER AT BEDSIDE DURING THIS TIME. PT ABLE TO MAKE NEEDS KNOWN. NO ACUTE DISTRESS NOTED. DENIES PAIN AND DISCOMFORT AT THIS TIME. NO SOB NOTED. ON TELE MONITOR, SINUS RHYTHM HR 77BPM. JUAN ANTONIO PICC LINE INTACT AND PATENT, FLUSHING WELL. KEPT CLEAN, DRY AND COMFORTABLE. SAFETY AND FALL PRECAUTIONS OBSERVED AND MAINTAINED. CALL LIGHT PLACED WITHIN REACH. ALL NEEDS ATTENDED. WILL CONTINUE TO MONITOR PT.
[2017-12-06 20:00] VITALS: BP 147/66
[2017-12-06] MEDS: ZOLPIDEM TARTRATE 5 MG TABLET PO PRN (21:44)
[2017-12-07] VITALS: BP 126/66
[2017-12-07] MEDS: VANCOMYCIN 0.75 GM in IV NS 0.9% 250 ML IV SCH (01:12)
[2017-12-07 04:00] VITALS: BP 123/65
[2017-12-07] MEDS: ZOSYN IVPB 3.375 G in IV D5W 50ml IV SCH (05:16)
[2017-12-07 06:32] LABS: BASOPHILS % (AUTO) 0.6 % (0.0-2.0); EOSINOPHILS % (AUTO) 5.3 % (0.0-6.0); HEMATOCRIT 33 % (39-51); HEMOGLOBIN 10.4 g/dL (13.5-17.5); LYMPHOCYTES # (AUTO) 1.1 /CMM (0.8-4.8); LYMPHOCYTES % (AUTO) 13.1 % (20.0-44.0); MEAN CORPUSCULAR HGB CONC 32 g/dl (31.0-36.0); MEAN CORPUSCULAR VOLUME 93 fL (80-96); MONOCYTES # (AUTO) 0.5 /CMM (0.1-1.30); MONOCYTES % (AUTO) 5.9 % (2.0-12.0); NEUTROPHILS # (AUTO) 6.1 /CMM (1.8-8.9); NEUTROPHILS % (AUTO) 75.1 % (43.0-81.0); PLATELET COUNT (AUTO) 478 /CMM (150-450); RDW COEFFICIENT OF VARIATION 13.1 (11.5-15.0); RED BLOOD CELL COUNT(AUTO) 3.57 MIL/uL (4.5-6.0); WHITE BLOOD COUNT (AUTO) 8.1 K/uL (4.3-11.0)
--- NOTE | 2017-12-07 06:44 | NUR ---
SOAP MIXER NOTES: NO CHANGES NOTED THROUGHOUT THE SHIFT. NO ACUTE DISTRESS NOTED. DENIES PAIN AND DISCOMFORT AT THIS TIME. ON 3LPM NASAL CANNULA, NO SOB NOTED. SINUS RHYTHM ON TELE MONITOR HR 72BPM. KEPT CLEAN, DRY AND COMFORTABLE. SAFETY AND FALL PRECAUTIONS OBSERVED AND MAINTAINED. WILL ENDORSE TO DAY SHIFT FOR CONTINUITY OF CARE.
[2017-12-07 06:50] LABS: ALANINE AMINOTRANSFERASE 38 U/L (12-78); ALBUMIN 2.4 g/dL (3.4-5.0); ALKALINE PHOSPHATASE 144 U/L (46-116); ASPARTATE AMINOTRANSFERASE 29 U/L (15-37); BILIRUBIN,TOTAL 0.5 mg/dL (0.2-1.0); CALCIUM, SERUM 9.1 mg/dL (8.5-10.1); CARBON DIOXIDE 29 mmol/L (21-32); CHLORIDE 102 mmol/L (98-107); CREATININE 0.9 mg/dL (0.6-1.3); GLUCOSE 94 mg/dL (74-106); PHOSPHORUS 3.5 mg/dL (2.5-4.9); POTASSIUM 3.6 mmol/L (3.5-5.1); SODIUM SERUM 138 mmol/L (136-145); TOTAL PROTEIN, SERUM 6.5 g/dL (6.4-8.2); UREA NITROGEN, BLOOD 21 mg/dL (7-18)
[2017-12-07 08:00] VITALS: BP 125/74
--- NOTE | 2017-12-07 08:00 | NUR ---
RURAL CARRIER NOTE: RECEIVED PATIENT IN BED, AWAKE, ALERT AND VERBALLY RESPONSIVE. ON OXYGEN WITH 3L/MIN VIA NC SATURATING 96%. RESPIRATION EVEN AND UNLABORED. HOB ELEVATED. PATIENT WAS OFFERED INFLUENZA AND PNEUMONIA VACCINE, BUT THE PATIENT STRONGLY REFUSED IT DESPITE EXPLANATION OF THE RISKS AND BENEFITS OF IT. ON TRAFFIC INVESTIGATOR SR HR= 70. BED IN LOWEST POSITION AND LOCKED AT ALL TIMES. CALL LIGHT WITHIN REACH. NEEDS ANTICIPATED. SOON CHARGE NURSE RECEIVED A CALL FROM THE [facility] AND SHE STATED THAT THE PATIENT WILL BE DISCHARGED TODAY AT [facility] AND PICK-UP TIME WILL BE AT 1000. PATIENT WAS MADE AWARE.
[2017-12-07] MEDS: ENSURE ENLIVE CHOC 237 ML CAN PO SCH (08:37)
[2017-12-07] MEDS: SPIRONOLACTONE 25 MG TABLET PO SCH (08:38)
[2017-12-07] MEDS: CITALOPRAM HYDROBROMIDE 20 MG TABLET PO SCH (08:38)
[2017-12-07] MEDS: CHOLESTYRAMINE/ASPARTAME 4 G/PKT PACKET PO SCH (08:38)
[2017-12-07 08:39] VITALS: BP 125/74
[2017-12-07] MEDS: ASPIRIN 81 MG TAB.CHEW PO SCH (08:39)
[2017-12-07] MEDS: CLOPIDOGREL BISULFATE 75 MG TABLET PO SCH (08:39)
[2017-12-07] MEDS: METOPROLOL TARTRATE 50 MG TABLET PO SCH (08:39)
[2017-12-07] MEDS: FUROSEMIDE 40 MG TABLET PO SCH (08:39)
[2017-12-07] MEDS: PANTOPRAZOLE 40 MG TABLET.DR PO SCH (08:39)
[2017-12-07] MEDS: MULTIVITAMINS,THERAGRAN 1 UDTAB TABLET PO SCH (08:39)
[2017-12-07] MEDS: POTASSIUM CHLORIDE 20 MEQ TAB.PRT.SR PO SCH (08:39)
[2017-12-07] MEDS: MUPIROCIN OINT 2% 22 GM TUBE SCH (08:41)
[2017-12-07] MEDS: ENOXAPARIN SODIUM 40 MG/0.4 ML DISP.SYRIN SQ SCH (09:13)
[2017-12-07] MEDS: ACETAMINOPHEN 325 MG TABLET PO PRN (09:32)
--- NOTE | 2017-12-07 10:25 | NUR ---
RN RESEARCH NOTE: PATIENT WAS DISCHARGED TO [facility] AND WAS TRANSPORTED BY [facility] VIA GURNEY. PATIENT WAS ALERT, ORIENTED X3, COLOSTOMY BAG WAS CHANGED AND TOOK PICTURE OF THE STOMA. STOMA WAS RED IN COLOR AND NO BLEEDING ON THE SITE. SKIN AROUND THE STOMA WAS CLEAN AND INTACT. PAPERWORK WAS RELEASED TO THE PATIENT AND DISCUSSED WITH HIM THE EXIT CARE. OFFERED INFLUENZA VACCINE AND PNEUMONIA VACCINE, BUT THE PATIENT STRONGLY REFUSED IT. REPORT WAS GIVEN TO KAMILA ACUNA FROM [facility] AND MADE HER AWARE THAT THE PATIENT REFUSED THE VACCINES TO BE ADMINISTER PRIOR TO DISCHARGE. KAMILA ACUNA WAS ALSO INFORMED OF THE CONTINUATION OF THE IV ANTIBIOTICS AND THAT THE PATIENT HAS A (R) UA PICC LINE ON PLACED FOR THE IV ADMINISTRATION. PATIENT'S BELONGINGS WAS RELEASED INCLUDING HIS HOME MEDICATIONS.
== END 2017-12-07 10:25 | DRG 720 ==
LOC: ER 11:05 → TELE 13:32 → TELE-TD 22:52 → ICU 12-01 00:13 → TELE1 12-04 18:28
PROVIDERS: ADMIT Internal Medicine Nephrology; ATTEND Internal Medicine Nephrology
PROC: 5A09357 Assistance with Respiratory Ventilation, Less than 24 Consecutive Hours, Continuous Positive Airway Pressure (ICD-10-PCS; principal; 2017-12-01)
PROC: 02HV33Z Insertion of Infusion Device into Superior Vena Cava, Percutaneous Approach (ICD-10-PCS; principal; 2017-12-01)
PROC: B548ZZA Ultrasonography of Superior Vena Cava, Guidance (ICD-10-PCS; principal; 2017-12-01)
DX: A41.9 Sepsis, unspecified organism (principal); I21.4 Non-ST elevation (NSTEMI) myocardial infarction; J18.9 Pneumonia, unspecified organism; E87.2 Acidosis; J96.01 Acute respiratory failure with hypoxia; J96.02 Acute respiratory failure with hypercapnia; I11.0 Hypertensive heart disease with heart failure; I42.9 Cardiomyopathy, unspecified; K56.7 Ileus, unspecified; I50.9 Heart failure, unspecified; J84.10 Pulmonary fibrosis, unspecified; D64.9 Anemia, unspecified; E86.9 Volume depletion, unspecified; Z95.1 Presence of aortocoronary bypass graft; I25.10 Atherosclerotic heart disease of native coronary artery without angina pectoris; Z85.038 Personal history of other malignant neoplasm of large intestine; Z87.891 Personal history of nicotine dependence; Z93.3 Colostomy status; Z92.3 Personal history of irradiation; Z79.01 Long term (current) use of anticoagulants; Z79.899 Other long term (current) drug therapy; Z88.5 Allergy status to narcotic agent; I71.4 Abdominal aortic aneurysm, without rupture; F41.9 Anxiety disorder, unspecified; E87.6 Hypokalemia; E78.5 Hyperlipidemia, unspecified; I25.2 Old myocardial infarction; J98.11 Atelectasis
CPT/HCPCS: 36415; 36569; 36600; 71045-TC; 80048-TC; 80053-TC; 80076-TC; 80202-TC; 81000-TC; 82803-TC; 83605-TC; 83735-TC; 83880; 84100-TC; 84484-TC; 85025-TC; 85730-TC; 87040-TC; 87081-TC; 87086-TC; 93307-TC; 97110-TC; 97116-TC; 97530-TC; A4349; A4606; A6402; C1751; J1644; J1650; J1940; J2060; J2405; J2543; J3370; J3410; J3475; J3480; J3490; J7030; J7040; J7050; J7060; Q0177; Z7610